=== PATIENT | female | born 1955 | race Hispanic/Latino ===

== ENCOUNTER → 2019-01-10 | Day surgery (SDC) | payer MEDICARE ==
[~2019-01-10] MED LIST: AMANTADINE100 MG PO; ASPIR 8181 MG PO; EFFEXOR XR 3737.5 MG PO; FENTANYL CITRATE/PF 100MCG/2 ML INJ ONE; GABAPENTIN300 MG PO; GLIMEPIRIDE2 MG PO; GLIPIZIDE5 MG PO; HYOSCYAMINE 0.125 MG TAB ONE; LASIX20 MG PO; LIPITOR10 MG PO; LOSARTAN POTAS100 MG PO; METFORMIN HCL500 M2 PO; MIDAZOLAM HCL 2 MG/2 ML VIAL ONE; NAPROXEN250 MG PO; OXYBUTYNIN CHLOR5 MG PO; PROPOFOL IV EMULSION 10 MG/ML 50 ML VIAL ONE; SERTRALINE HCL50 MG PO; SOLIQUA SQ; TRAZODONE HCL50 MG PO; TYLENOL WITH C1 EACH PO; VIT D2 PO; VITAMIN D32000 UNIT PEG
--- OUTSIDE RECORDS SUMMARY | 2019-01-10 09:49 | XMS REPORT ---
[facility] Phone Unavailable Care Team Providers Care Circular Shear Operator Name Role Phone ANTIONETTE LE PP Unavailable Adrianna BENTLEY Unavailable Unavailable [facility] OCCUPATIONAL Unavailable Unavailable SAMIR WARNER M.D. Unavailable Unavailable Problems This patient has no known problems. Allergies, Adverse Reactions, Alerts This patient has no known allergies or adverse reactions. Medications This patient has no known medications. Encounters Start Date/Time End Date/Time Encounter Type Admission Type Attending [facility] Care Department Encounter ID 2017-07-15 13:31:00 2017-07-15 13:31:00 Outpatient C [facility] [id number] Results Test Description Test Time Test Comments Text Results Atomic Results Result Comments XR Calcaneous Right 2018-03-02 10:11:23 Patient: JV RICE Date/Time03/02/2018 09:50 CDTReason for ExamE11.621ReportLocation R 16Exam: Right Calcaneus, 3 ViewsHistory: E11.621Comparison: Right foot radiograph dated 10/01/2017Findings:The calcaneus appears intact and well aligned. 10 mm enthesophyte is noted at the Achilles attachment at the calcaneus. Mild spurring involves the inferior calcaneus as well.No erosive changes or periosteal reaction. Subtalar joint appears normal without erosive changes or sclerosis.Vascular calcification is noted in the foot.Impression:1. Mild sp urring/enthesopathy involving the calcaneus.2. Peripheral vascular disease. Final Dictated by: MD He Eniola FDictated DT/TM: 03/02/2018 10:06 amSigned by: MD He Eniola FSigned (Electronic Signature): 03/02/2018 10:11 am AFB Culture and Smear 2017-11-27 11:45:00 Specimen/Source: Wound/Right ToeCollected: 10/06/2017 00:00 Status: Final Last Updated: 11/27/2017 11:45 BNP-Fopki-Kxcacqgdpeeu (Final) (Final) 10/13/17 No acid fast bacill seen on dir ect smear Culture Result (Final) (Final) 11/27/17 No growth of AFB at six (6) weeks Fungus Culture with Stain 2017-11-23 10:48:00 Specimen/Source: Wound/Right ToeCollected: 10/06/2017 00:00 Status: Final Last Updated: 11/23/2017 10:48 Fungal Smear Result (Final) (Final) 10/06/17 No yeast or hyphae seen Culture Result (Final) (Final) \S\11/23/17 No fungus isolated at 6 weeks Result before changed by SCHUMAEL on 11/23/2017 10:48: Culture Result (Final) (Final) \S\11/23/17 XR Chest 2 Views 2017-11-11 16:46:13 Patient: JV RICE Date/Time11/11/2017 16:35 CDTReason for Examhbo clearanceReportEXAM: Chest x-ray, 2 viewsLOCATION: [id number]: CTA of the aorta 07/15/2017INDICATION: hbo clearanceDISCUSSION:AP and lateral chest radiographs were submitted for interpretation.No consolidation, pleural effusion, or pneumothorax is seen.The cardiomediastinal silhouette is within normal limits.Mild aortic calcification is present.No acute osseous abnormalities are identified.IMPRESSION:No acute cardiopulmonary abnormalities. Final Dictated by: MD Mcmahon Alfred EDictated DT/TM: 11/11/2017 4:44 pmSigned by: MD Mcmahon Alfred ESignyolie (Electronic Signature): 11/11/2017 4:46 pm HIV Antibody 2017-10-21 11:58:00 HIV Screen 4th Generation wRf (test fary=[id number]) Non Reactive Non Reactive Culture, Wound [id number] 07:14:00Specimen/Source: Wound/Right ToeCollected: 10/06/2017 00:00 Status: Final Last Updated: 10/10/2017 07:14 Gram Stain (Final) (Final) 10/06/17 No organsims seen, No WBC's seen Culture Result (Final) (Final) 10/10/17 Anaerobic culture:No anaerobes isolated at 3 days Isolate (Final) (Final) 10/07/17 Rare Proteus vulgaris Amikacin <=16 Susceptible Ampicillin >16 Resistant Ampicillin/Sulb <=8/4 Susceptible Cefazolin >16 Resistant Cefepime <=4 Susceptible Cefotaxime 16 Intermediate Ceftazidime 4 Susceptible Ceftriaxone >32 Resistant Cefuroxime >16 Resistant Ciprofloxacin <=1 Susceptible Gentamicin <=4 Susceptible Imipenem 2 Intermediate Levofloxacin <=2 Susceptible Meropenem <=1 Susceptible Piperacillin/Tazo <=16 Susceptible Tobramycin <=4 Susceptible Trimethoprim/Sulfa <=2/38 Susceptible Isolate (Final) (Final) 10/07/17 Few Group D Enterococcus Isolate (Final) (Final) 10/07/17 Few Group D Enterococcus Second type Isolate Isolate Group D Enterococcus Group D Enterococcus --- KEON (mcg/ml) Ampicillin (AM) <=2 Susceptible <=2 Susceptible Gentamicin Syn (HLG) >500 Resistant <=500 Susceptible Linezolid (LNZ) 2 Susceptible 2 Susceptible Penicillin (P) 2 Susceptible 1 Susceptible Streptomycin Syn (HLS)<=1000 Susceptible <=1000 Susceptible Vancomycin (VA) 2 Susceptible 0.5 Susceptible Antibiotic Summary Grid: AM HLG LNZ P HLS VA Group D S R S S S S Enterococcus Group D S S S S S S Enterococcus POC Glucose, [id number] 16:11:00* Test Item Value Reference Range Comments POC Glucose (test code=POCGLUC) 237 mg/dL 70-115 If you consider your patient critically ill, the Festus Accu-Chek InformII metershould not be used for Glucose determinations.Draw a venous Glucose and send to the Main Lab for Analysis. POC Glucose, [id number] 08:01:00* Test Item Value Reference Range Comments POC Glucose (test code=POCGLUC) 163 mg/dL 70-115 If you consider your patient critically ill, the Festus Accu-Chek InformII metershould not be used for Glucose determinations.Draw a venous Glucose and send to the Main Lab for Analysis. Basic Metabolic [id number] 06:18:00* Test Item Value Reference Range Comments Sodium (test code=NA) 142 mmol/L 135-145 Potassium (test code=K) 4.3 mmol/L 3.5-5.1 Chloride (test code=CL) 103 mmol/L 98-105 Carbon Dioxide (test code=CO2) 25 mmol/L 22-29 Glucose (test code=GLU) 125 mg/dL 70-115 Blood Urea Nitrogen (test code=BUN) 13 mg/dL 8-23 Creatinine (test code=CREAT) 0.9 mg/dL 0.5-0.9 Calcium (test code=CA) 8.7 mg/dL 8.3-10.5 BUN/Creatinine Ratio (test code=BCRATIO) 14.4 Anion Gap (test code=AGAP) 14 mmol/L 7-16 Estimated GFR (test code=GFR) >60 mL/min/1.73m2 eGFR (estimated Glomerular Filtration Rate) is an estimated value,calculated from the patient's serum creatinine using the MDRD equation.It is NOT the patient's actual GFR. The eGFR provides a more clinicallyuseful measure of kidney disease than serum creatinine alone.This calculation takes sex and race into account, if the informationis provided. If the race is not provided, and the patient isAfrican-Hungarian, multiply by 1.212. If sex is not provided, and thepatient is female, multiply by 0.742. Results for patients <18 years ofage have not been validated by the MDRD study and should be interpretedwith caution.eGFR Result Interpretation:eGFR > or=60 is in the Normal RangeeGFR < 60 may mean kidney diseaseeGFR < 15 may mean kidney failureRanges recommended by the National Kidney Foundat ion,http://nkdep.nih.gov POC Glucose, [id number] 21:33:00* Test Item Value Reference Range Comments POC Glucose (test code=POCGLUC) 167 mg/dL 70-115 If you consider your patient critically ill, the Festus Accu-Chek InformII metershould not be used for Glucose determinations.Draw a venous Glucose and send to the Main Lab for Analysis. Vancomycin, [id number] 18:37:00* Test Item Value Reference Range Comments Ez Robles (test code=VANTR) 10.8 ug/mL 10.0-20.0 POC Glucose, [id number] 15:41:00* Test Item Value Reference Range Comments POC Glucose (test code=POCGLUC) 335 mg/dL 70-115 If you consider your patient critically ill, the Festus Accu-Chek InformII metershould not be used for Glucose determinations.Draw a venous Glucose and send to the Main Lab for Analysis. POC Glucose, [id number] 11:21:00* Test Item Value Reference Range Comments POC Glucose (test code=POCGLUC) 304 mg/dL 70-115 If you consider your patient critically ill, the Festus Accu-Chek InformII metershould not be used for Glucose determinations.Draw a venous Glucose and send to the Main Lab for Analysis. Culture, Blood [id number] 08:47:00Specimen: BloodCollected: 10/01/2017 23:20 Status: Final Last Updated: 10/07/2017 08:47 (1) ER Bed 3 Culture Result (Final) (Final) No Growth After 5 Days Culture, Blood Routine 2017-10-07 08:47:00Specimen: BloodCollected: 10/01/2017 23:05 Status: Final Last Updated: 10/07/2017 08:47 (1) ER Bed 3 Culture Result (Final) (Final) No Growth After 5 Days Sed Rate ESR ([place])2017-10-07 08:10:00* Test Item Value Reference Range Comments ESR (test code=HESR) 110 mm/Hr 0-20 POC Glucose, [id number] 07:47:00* Test Item Value Reference Range Comments POC Glucose (test code=POCGLUC) 160 mg/dL 70-115 If you consider your patient critically ill, the Festus Accu-Chek InformII metershould not be used for Glucose determinations.Draw a venous Glucose and send to the Main Lab for Analysis. Urinalysis [id number] 07:11:00* Test Item Value Reference Range Comments Color (test code=COLOR) Yellow Yellow,Straw,Pl yellow Clarity (test code=CLAR) Clear Clear Specific [place] (test code=SPGR) 1.013 1.001-1.035 pH (test code=PH) 7.0 5.0-9.0 Ketone (test code=KET) Negative mg/dL Negative Glucose (test code=GLUCUR) 100 mg/dL Negative Protein (test code=PROT) Negative mg/dL Negative Bilirubin (test code=BILI) Negative mg/dL Negative Occult Blood (test code=UDOB) Negative Negative Urobilinogen (test code=UROB) 0.2 mg/dL 0.2-1.0 Nitrite (test code=NIT) Negative Negative Leuk Esterase (test code=LEUK) Negative Negative Micros Exam (test code=MEXAM) Indicated Epithelial Cells (test code=EPI) 3-5 /LPF 0-30 WBC, Urine (test code=UWBC) None seen /HPF 0-5 RBC, Urine (test code=URBC) None Seen /HPF 0-5 Bacteria (test code=BACT) None /HPF CBC with [id number] 07:00:00* Test Item Value Reference Range Comments WBC (test code=WBC) 10.6 K/cumm 4.4-10.5 RBC (test code=RBC) 3.70 M/cumm 3.75-5.20 Hemoglobin (test code=HGB) 10.6 gm/dL 12.2-14.8 Hematocrit (test code=HCT) 33.4 % 36.5-44.4 MCV (test code=MCV) 90.3 fL 80-100 MCH (test code=MCH) 28.6 pg 27.0-32.5 MCHC (test code=MCHC) 31.7 g/dL 32.0-37.5 RDW (test code=RDW) 13.1 % 11.5-14.5 Platelet Count (test code=PLTCT) 447 K/cumm 140-440 MPV (test code=MPV) 10.0 fL Diff Method (test code=DIFFM) Auto Neutrophil (test code=NEUT) 59.6 % 36-70 Lymphocyte (test code=LYMPH) 28.2 % 12-44 Monocyte (test code=MONO) 6.7 % 0-11 Eosinophil (test code=EOS) 5.1 % 0-7 Basophil (test code=BASO) 0.4 % 0-2 Neutro Abs (test code=ANEUT) 6.3 K/cumm 1.6-7.4 Lymph Abs (test code=ALYMPH) 3.0 K/cumm 0.5-4.6 Early Abs (test code=AMONO) 0.7 K/cumm 0.0-1.2 Eos Abs (test code=AEOS) 0.54 K/cumm 0.00-0.74 Baso Abs (test code=ABASO) 0.0 K/cumm 0.00-0.21 Basic Metabolic [id number] 06:59:00* Test Item Value Reference Range Comments Sodium (test code=NA) 140 mmol/L 135-145 Potassium (test code=K) 4.3 mmol/L 3.5-5.1 Chloride (test code=CL) 101 mmol/L 98-105 Carbon Dioxide (test code=CO2) 28 mmol/L 22-29 Glucose (test code=GLU) 146 mg/dL 70-115 Blood Urea Nitrogen (test code=BUN) 11 mg/dL 8-23 Creatinine (test code=CREAT) 0.9 mg/dL 0.5-0.9 Calcium (test code=CA) 8.4 mg/dL 8.3-10.5 BUN/Creatinine Ratio (test code=BCRATIO) 12.2 Anion Gap (test code=AGAP) 11 mmol/L 7-16 Estimated GFR (test code=GFR) >60 mL/min/1.73m2 eGFR (estimated Glomerular Filtration Rate) is an estimated value,calculated from the patient's serum creatinine using the MDRD equation.It is NOT the patient's actual GFR. The eGFR provides a more clinicallyuseful measure of kidney disease than serum creatinine alone.This calculation takes sex and race into account, if the informationis provided. If the race is not provided, and the patient isAfrican-Hungarian, multiply by 1.212. If sex is not provided, and thepatient is female, multiply by 0.742. Results for patients <18 years ofage have not been validated by the MDRD study and should be interpretedwith caution.eGFR Result Interpretation:eGFR > or=60 is in the Normal RangeeGFR < 60 may mean kidney diseaseeGFR < 15 may mean kidney failureRanges recommended by the National Kidney Foundat ion,http://nkdep.nih.gov C-Reactive Protein, [id number] 06:59:00* Test Item Value Reference Range Comments CRP (test code=CRP) 61.7 mg/L 0.0-5.0 POC Glucose, [id number] 19:29:00* Test Item Value Reference Range Comments POC Glucose (test code=POCGLUC) 271 mg/dL 70-115 If you consider your patient critically ill, the Festus Accu-Chek InformII metershould not be used for Glucose determinations.Draw a venous Glucose and send to the Main Lab for Analysis. POC Glucose, [id number] 16:14:00* Test Item Value Reference Range Comments POC Glucose (test code=POCGLUC) 318 mg/dL 70-115 Notify RN or MDIf you consider your patient critically ill, the Festus Accu-Chek InformII metershould not be used for Glucose determinations.Draw a venous Glucose and send to the Main Lab for Analysis. POC Glucose, [id number] 09:07:00* Test Item Value Reference Range Comments POC Glucose (test code=POCGLUC) 217 mg/dL 70-115 If you consider your patient critically ill, the Festus Accu-Chek InformII metershould not be used for Glucose determinations.Draw a venous Glucose and send to the Main Lab for Analysis. Vancomycin, [id number] 05:58:00* Test Item Value Reference Range Comments Ez Robles (test code=VANTR) 6.9 ug/mL 10.0-20.0 POC Glucose, [id number] 19:02:00* Test Item Value Reference Range Comments POC Glucose (test code=POCGLUC) 128 mg/dL 70-115 If you consider your patient critically ill, the Festus Accu-Chek InformII metershould not be used for Glucose determinations.Draw a venous Glucose and send to the Main Lab for Analysis. POC Glucose, [id number] 11:28:00* Test Item Value Reference Range Comments POC Glucose (test code=POCGLUC) 188 mg/dL 70-115 If you consider your patient critically ill, the Festus Accu-Chek InformII metershould not be used for Glucose determinations.Draw a venous Glucose and send to the Main Lab for Analysis. POC Glucose, [id number] 07:05:00* Test Item Value Reference Range Comments POC Glucose (test code=POCGLUC) 155 mg/dL 70-115 If you consider your patient critically ill, the Festus Accu-Chek InformII metershould not be used for Glucose determinations.Draw a venous Glucose and send to the Main Lab for Analysis. POC Glucose, [id number] 21:07:00* Test Item Value Reference Range Comments POC Glucose (test code=POCGLUC) 243 mg/dL 70-115 Notify RN or MDIf you consider your patient critically ill, the Festus Accu-Chek InformII metershould not be used for Glucose determinations.Draw a venous Glucose and send to the Main Lab for Analysis. POC Glucose, [id number] 15:21:00* Test Item Value Reference Range Comments POC Glucose (test code=POCGLUC) 316 mg/dL 70-115 If you consider your patient critically ill, the Festus Accu-Chek InformII metershould not be used for Glucose determinations.Draw a venous Glucose and send to the Main Lab for Analysis. POC Glucose, [id number] 11:37:00* Test Item Value Reference Range Comments POC Glucose (test code=POCGLUC) 256 mg/dL 70-115 If you consider your patient critically ill, the Festus Accu-Chek InformII metershould not be used for Glucose determinations.Draw a venous Glucose and send to the Main Lab for Analysis. POC Glucose, [id number] 07:24:00* Test Item Value Reference Range Comments POC Glucose (test code=POCGLUC) 231 mg/dL 70-115 If you consider your patient critically ill, the Festus Accu-Chek InformII metershould not be used for Glucose determinations.Draw a venous Glucose and send to the Main Lab for Analysis. RPR, [id number] 03:25:00* Test Item Value Reference Range Comments RPR (test code=RPR) Non-Reactive Non-Reactive POC Glucose, [id number] 21:04:00* Test Item Value Reference Range Comments POC Glucose (test code=POCGLUC) 313 mg/dL 70-115 If you consider your patient critically ill, the Festus Accu-Chek InformII metershould not be used for Glucose determinations.Draw a venous Glucose and send to the Main Lab for Analysis. POC Glucose, [id number] 16:13:00* Test Item Value Reference Range Comments POC Glucose (test code=POCGLUC) 268 mg/dL 70-115 Notify RN or MDIf you consider your patient critically ill, the Festus Accu-Chek InformII metershould not be used for Glucose determinations.Draw a venous Glucose and send to the Main Lab for Analysis. HIV [id number] 14:43:00* Test Item Value Reference Range Comments HIV 1/2 Antibody (test code=HIV1/2AB) Non-Reactive Non-Reactive HIV1/2 Antibody screen result indicates the absence of HIV1 and YSV7flgqbdrey.However, A Non- Reactive screen result does not rule out exposure orinfection. If an acute infection is suspected, HIV RNA Quantitative is recommended. P24 Antigen (test code=P24) Non-Reactive Non-Reactive P24 Ag screen result indicates the absence of P24 antigen, which is anindicator of HIV-1 acute infection.However, A Non-Reactive screen does not rule out exposure or infection.If acute HIV-1 is suspected, HIV RNA Quantitative is recommended. Comprehensive Metabolic [id number] 13:43:00* Test Item Value Reference Range Comments Sodium (test code=NA) 136 mmol/L 135-145 Potassium (test code=K) 4.3 mmol/L 3.5-5.1 Chloride (test code=CL) 95 mmol/L 98-105 Carbon Dioxide (test code=CO2) 26 mmol/L 22-29 Glucose (test code=GLU) 253 mg/dL 70-115 Blood Urea Nitrogen (test code=BUN) 17 mg/dL 8-23 Creatinine (test code=CREAT) 0.8 mg/dL 0.5-0.9 Calcium (test code=CA) 8.9 mg/dL 8.3-10.5 Prot Total (test code=TP) 6.8 g/dL 6.4-8.3 Albumin (test code=ALB) 3.6 g/dL 3.5-5.2 A/G Ratio (test code=AGRATIO) 1.1 Ratio Globulin (test code=GLOB) 3.2 2.9-3.1 Bili Total (test code=TBIL) 0.2 mg/dL 0.1-0.9 Alk Phos (test code=APHOS) 106 U/L 35-104 AST (test code=AST) 15 U/L 1-32 ALT (test code=ALT) 16 U/L 1-33 BUN/Creatinine Ratio (test code=BCRATIO) 21.3 Anion Gap (test code=AGAP) 15 mmol/L 7-16 Estimated GFR (test code=GFR) >60 mL/min/1.73m2 eGFR (estimated Glomerular Filtration Rate) is an estimated value,calculated from the patient's serum creatinine using the MDRD equation.It is NOT the patient's actual GFR. The eGFR provides a more clinicallyuseful measure of kidney disease than serum creatinine alone.This calculation takes sex and race into account, if the informationis provided. If the race is not provided, and the patient isAfrican-Hungarian, multiply by 1.212. If sex is not provided, and thepatient is female, multiply by 0.742. Results for patients <18 years ofage have not been validated by the MDRD study and should be interpretedwith caution.eGFR Result Interpretation:eGFR > or=60 is in the Normal RangeeGFR < 60 may mean kidney diseaseeGFR < 15 may mean kidney failureRanges recommended by the National Kidney Foundat ion,http://nkdep.nih.gov CBC with [id number] 13:33:00* Test Item Value Reference Range Comments WBC (test code=WBC) 10.7 K/cumm 4.4-10.5 RBC (test code=RBC) 4.23 M/cumm 3.75-5.20 Hemoglobin (test code=HGB) 12.2 gm/dL 12.2-14.8 Hematocrit (test code=HCT) 37.5 % 36.5-44.4 MCV (test code=MCV) 88.6 fL 80-100 MCH (test code=MCH) 28.8 pg 27.0-32.5 MCHC (test code=MCHC) 32.5 g/dL 32.0-37.5 RDW (test code=RDW) 13.1 % 11.5-14.5 Platelet Count (test code=PLTCT) 487 K/cumm 140-440 MPV (test code=MPV) 10.2 fL Diff Method (test code=DIFFM) Auto Neutrophil (test code=NEUT) 63.5 % 36-70 Lymphocyte (test code=LYMPH) 28.4 % 12-44 Monocyte (test code=MONO) 4.7 % 0-11 Eosinophil (test code=EOS) 2.6 % 0-7 Basophil (test code=BASO) 0.8 % 0-2 Neutro Abs (test code=ANEUT) 6.8 K/cumm 1.6-7.4 Lymph Abs (test code=ALYMPH) 3.0 K/cumm 0.5-4.6 Early Abs (test code=AMONO) 0.5 K/cumm 0.0-1.2 Eos Abs (test code=AEOS) 0.28 K/cumm 0.00-0.74 Baso Abs (test code=ABASO) 0.1 K/cumm 0.00-0.21 Hep B Surface [id number] 13:32:00* Test Item Value Reference Range Comments Hep Bs Ab (test code=HBSAB) Nonreactive Non-Reactive Hep B Surface [id number] 13:32:00* Test Item Value Reference Range Comments Hep Bs Ag (test code=HBSAG) Nonreactive Non-Reactive Hep C [id number] 13:32:00* Test Item Value Reference Range Comments Hep C Ab (test code=HCAB) Nonreactive Non-Reactive A Reactive result may indicate a past or present HCV infection orpossibly a carrier state. It is not diagnostic of Hepatitis C.However, a patient with a repeatedly Reactive result should beconsidered infectious. Reactive for HCV antibody by EIA screeningshould be confirmed by a supplemental test. Hep B Core [id number] 13:32:00* Test Item Value Reference Range Comments HBC Total (test code=HBCAB) Nonreactive Non-Reactive BHCG, Serum, [id number] 13:13:00* Test Item Value Reference Range Comments Preg Qual [Se] (test code=BSHCG) Negative Negative POC Glucose, [id number] 11:47:00* Test Item Value Reference Range Comments POC Glucose (test code=POCGLUC) 293 mg/dL 70-115 Notify RN or MDIf you consider your patient critically ill, the Festus Accu-Chek InformII metershould not be used for Glucose determinations.Draw a venous Glucose and send to the Main Lab for Analysis. POC Glucose, [id number] 07:28:00* Test Item Value Reference Range Comments POC Glucose (test code=POCGLUC) 203 mg/dL 70-115 Notify RN or MDIf you consider your patient critically ill, the Festus Accu-Chek InformII metershould not be used for Glucose determinations.Draw a venous Glucose and send to the Main Lab for Analysis. Basic Metabolic [id number] 05:54:00* Test Item Value Reference Range Comments Sodium (test code=NA) 135 mmol/L 135-145 Potassium (test code=K) 4.2 mmol/L 3.5-5.1 Chloride (test code=CL) 95 mmol/L 98-105 Carbon Dioxide (test code=CO2) 28 mmol/L 22-29 Glucose (test code=GLU) 210 mg/dL 70-115 Blood Urea Nitrogen (test code=BUN) 18 mg/dL 8-23 Creatinine (test code=CREAT) 0.8 mg/dL 0.5-0.9 Calcium (test code=CA) 8.9 mg/dL 8.3-10.5 BUN/Creatinine Ratio (test code=BCRATIO) 22.5 Anion Gap (test code=AGAP) 12 mmol/L 7-16 Estimated GFR (test code=GFR) >60 mL/min/1.73m2 eGFR (estimated Glomerular Filtration Rate) is an estimated value,calculated from the patient's serum creatinine using the MDRD equation.It is NOT the patient's actual GFR. The eGFR provides a more clinicallyuseful measure of kidney disease than serum creatinine alone.This calculation takes sex and race into account, if the informationis provided. If the race is not provided, and the patient isAfrican-Hungarian, multiply by 1.212. If sex is not provided, and thepatient is female, multiply by 0.742. Results for patients <18 years ofage have not been validated by the MDRD study and should be interpretedwith caution.eGFR Result Interpretation:eGFR > or=60 is in the Normal RangeeGFR < 60 may mean kidney diseaseeGFR < 15 may mean kidney failureRanges recommended by the National Kidney Foundat ion,http://nkdep.nih.gov CBC with [id number] 05:33:00* Test Item Value Reference Range Comments WBC (test code=WBC) 11.4 K/cumm 4.4-10.5 RBC (test code=RBC) 3.99 M/cumm 3.75-5.20 Hemoglobin (test code=HGB) 11.7 gm/dL 12.2-14.8 Hematocrit (test code=HCT) 36.0 % 36.5-44.4 MCV (test code=MCV) 90.3 fL 80-100 MCH (test code=MCH) 29.5 pg 27.0-32.5 MCHC (test code=MCHC) 32.6 g/dL 32.0-37.5 RDW (test code=RDW) 13.2 % 11.5-14.5 Platelet Count (test code=PLTCT) 471 K/cumm 140-440 MPV (test code=MPV) 10.1 fL Diff Method (test code=DIFFM) Auto Neutrophil (test code=NEUT) 61.1 % 36-70 Lymphocyte (test code=LYMPH) 29.8 % 12-44 Monocyte (test code=MONO) 5.2 % 0-11 Eosinophil (test code=EOS) 3.0 % 0-7 Basophil (test code=BASO) 0.8 % 0-2 Neutro Abs (test code=ANEUT) 6.9 K/cumm 1.6-7.4 Lymph Abs (test code=ALYMPH) 3.4 K/cumm 0.5-4.6 Early Abs (test code=AMONO) 0.6 K/cumm 0.0-1.2 Eos Abs (test code=AEOS) 0.34 K/cumm 0.00-0.74 Baso Abs (test code=ABASO) 0.1 K/cumm 0.00-0.21 POC Glucose, [id number] 21:28:00* Test Item Value Reference Range Comments POC Glucose (test code=POCGLUC) 241 mg/dL 70-115 If you consider your patient critically ill, the Festus Accu-Chek InformII metershould not be used for Glucose determinations.Draw a venous Glucose and send to the Main Lab for Analysis. POC Glucose, [id number] 17:02:00* Test Item Value Reference Range Comments POC Glucose (test code=POCGLUC) 296 mg/dL 70-115 Notify RN or MDIf you consider your patient critically ill, the Festus Accu-Chek InformII metershould not be used for Glucose determinations.Draw a venous Glucose and send to the Main Lab for Analysis. US DUPLX LWR EXT ART/BPG, [id number] 08:37:15US DUPLX LWR EXT ART/BPG, BILATCLINICAL HISTORY: PainTechnique: Grayscale, color, and spectral sonography of the bilateral lower extremity arteries was performed.FINDINGS:Right leg (waveform / peak systolic velocity)COLLEGE SPECIALIST: Biphasic 116 cm/secProx SFA: Biphasic 64 cm/secMid SFA: Biphasic 90 cm/secDistal SFA: Biphasic 118 cm/secPopliteal: Biphasic 69 cm/secPTA: Monophasic 49 cm/secATA: Biphasic 34 cm/secDPA: Monophasic 60 cm/secLeft leg (waveform / peak systolic velocity)COLLEGE SPECIALIST: Biphasic 95 cm/secProx SFA: Biphasic 78 cm/secMid SFA: Bi phasic 91 cm/secDistal SFA: Biphasic 118 cm/secPopliteal: Biphasic 63 cm/secPTA: Monophasic 44 cm/sec proximal, 19 cm/s distalATA: Monophasic 27 cm/secDPA: Monophasic 44 cm/secIMPRESSIO N: 1. Mild femoropopliteal segment disease without evidence of aflow-limiting s tenosis.2. The popliteal arteries are monophasic compatible with moderate toadv anced disease.Location: [address], [id number] 07:54:00* Test Item Value Reference Range Comments POC Glucose (test code=POCGLUC) 123 mg/dL 70-115 If you consider your patient critically ill, the [facility] Accu-Chek InformII metershould not be used for Glucose determinations.Draw a venous Glucose and send to the Main Lab for Analysis. Comprehensive Metabolic [id number] 00:01:00* Test Item Value Reference Range Comments Sodium (test code=NA) 136 mmol/L 135-145 Potassium (test code=K) 4.8 mmol/L 3.5-5.1 Hemolyzed Chloride (test code=CL) 94 mmol/L 98-105 Carbon Dioxide (test code=CO2) 26 mmol/L 22-29 Glucose (test code=GLU) 277 mg/dL 70-115 Blood Urea Nitrogen (test code=BUN) 26 mg/dL 8-23 Creatinine (test code=CREAT) 1.2 mg/dL 0.5-0.9 Calcium (test code=CA) 10.0 mg/dL 8.3-10.5 Prot Total (test code=TP) 8.5 g/dL 6.4-8.3 Albumin (test code=ALB) 4.4 g/dL 3.5-5.2 A/G Ratio (test code=AGRATIO) 1.1 Ratio Globulin (test code=GLOB) 4.1 2.9-3.1 Bili Total (test code=TBIL) 0.2 mg/dL 0.1-0.9 Alk Phos (test code=APHOS) 140 U/L 35-104 AST (test code=AST) 35 U/L 1-32 Hemolyzed ALT (test code=ALT) 19 U/L 1-33 BUN/Creatinine Ratio (test code=BCRATIO) 21.7 Anion Gap (test code=AGAP) 16 mmol/L 7-16 Estimated GFR (test code=GFR) 49 mL/min/1.73m2 eGFR (estimated Glomerular Filtration Rate) is an estimated value,calculated from the patient's serum creatinine using the MDRD equation.It is NOT the patient's actual GFR. The eGFR provides a more clinicallyuseful measure of kidney disease than serum creatinine alone.This calculation takes sex and race into account, if the informationis provided. If the race is not provided, and the patient isAfrican-Hungarian, multiply by 1.212. If sex is not provided, and thepatient is female, multiply by 0.742. Results for patients <18 years ofage have not been validated by the MDRD study and should be interpretedwith caution.eGFR Result Interpretation:eGFR > or=60 is in the Normal RangeeGFR < 60 may mean kidney diseaseeGFR < 15 may mean kidney failureRanges recommended by the National Kidney Foundat ion,http://nkdep.nih.gov CBC with [id number] 23:41:00* Test Item Value Reference Range Comments WBC (test code=WBC) 14.6 K/cumm 4.4-10.5 RBC (test code=RBC) 4.51 M/cumm 3.75-5.20 Hemoglobin (test code=HGB) 13.4 gm/dL 12.2-14.8 Hematocrit (test code=HCT) 41.4 % 36.5-44.4 MCV (test code=MCV) 91.7 fL 80-100 MCH (test code=MCH) 29.8 pg 27.0-32.5 MCHC (test code=MCHC) 32.5 g/dL 32.0-37.5 RDW (test code=RDW) 13.1 % 11.5-14.5 Platelet Count (test code=PLTCT) 499 K/cumm 140-440 MPV (test code=MPV) 10.8 fL Diff Method (test code=DIFFM) Auto Neutrophil (test code=NEUT) 71.7 % 36-70 Lymphocyte (test code=LYMPH) 21.7 % 12-44 Monocyte (test code=MONO) 4.4 % 0-11 Eosinophil (test code=EOS) 1.6 % 0-7 Basophil (test code=BASO) 0.6 % 0-2 Neutro Abs (test code=ANEUT) 10.5 K/cumm 1.6-7.4 Lymph Abs (test code=ALYMPH) 3.2 K/cumm 0.5-4.6 Early Abs (test code=AMONO) 0.6 K/cumm 0.0-1.2 Eos Abs (test code=AEOS) 0.24 K/cumm 0.00-0.74 Baso Abs (test code=ABASO) 0.1 K/cumm 0.00-0.21 XR FOOT 3+V, [id number] 23:14:50Examination: Right foot seriesLocation code: A62Mhrdqkwutw: NoneDiscussion:Clinical history is remarkable for pain. 3 views of the right foot wereobtained. Mineralization is appropriate. There is subcutaneous airidentified at the level of the fourth toe, findings may representcellulitis. There is no focal erosive change. Radiopaque foreign body isidentified along the mid fifth metatarsal.Impression:1. Subcutaneous air is present at the level of the fourth toe, noerosive change.2. Metallic linear foreign body is present along the distal fifthmetatarsal.POC Glucose, [id number] 22:43:00* Test Item Value Reference Range Comments POC Glucose (test code=POCGLUC) 292 mg/dL 70-115 Notify RN or MDIf you consider your patient critically ill, the [facility] Accu-Chek InformII metershould not be used for Glucose determinations.Draw a venous Glucose and send to the Main Lab for Analysis. CTA AORTO-ILIOFEMORAL RUNOFF [id number] 17:06:54CTA ABDOMINAL AORTA WITH LOWER EXTREMITY RUNOFF- WITH CONTRAST.CLINICAL HISTORY: I73.9: PERIPHERAL VASCULAR DISEASE, UNSPECIFIEDTECHNIQUE: Helical CT of the abdomen, pelvis, and lower extremities wasperformed following the administration of a 150 mL Isovue 300intravenous contrast. One or more of the following dose reductiontechniques were used: Automated exposure control, adjustment of the mAand/or kV according to patient size, and/or utilization of iterativereconstruction technique. Thin section axial, coronal, and sagittalimages were obtained. 3-D/MIP reconstructions were created. FINDINGS:ANGIOGRAPHIC FINDINGS:No aortic aneurysm or dissection is seen. Mild nonflow limitingcalcific plaque is seen in the ab dominal aorta. The common iliac andexternal iliac arteries are patent. Moderat e disease is seen in theproximal internal iliac arteries.The celiac trunk, SMA, both renal arteries, and HILARIO are patent.RIGHT LEG: The common femoral and profun da femoris arteries are patent. There ismild atherosclerotic disease in the pro ximal and mid SFA. A focal 50%stenosis is seen in the adductor canal. The popl iteal artery showsmoderate disease. The anterior tibial artery is patent. Ther e is afocal high-grade stenosis in the mid peroneal artery. The peronealartery continues distally and eventually supplies the plantar artery ofthe foot. The p osterior tibial artery is diminutive in size and likelyoccluded at the level of the ankle.LEFT LEG:The common femoral and profunda femoral arteries are patent. Moderatemultifocal narrowings are seen in the superficial femoral arterymeasuri ng up to 50%. The popliteal artery is patent with moderatedisease. The posteri or tibial artery is occluded proximally. Theperoneal artery gives supply to the plantar arteries of the foot. Theanterior tibial artery and dorsalis pedis art eries are patent.NONVASCULAR FINDINGS:Abdomen and pelvis: The visualized lung ba ses are clear. No pleural effusion is seen. Theheart size is normal.The liver, gallbladder, spleen, pancreas, and adrenal glands areunremarkable. The kidneys appear normal. No hydronephrosis is present. The bowel loops are nondilated. The appendix is normal. No free airfree fluid is present.The urinary bladder is unremarkable. No adnexal mass is seen. Noaggressive osseous lesion is identif ied.IMPRESSION: 1. Mild aortoiliac inflow disease.2. Focal 50% stenosis in the right distal SFA. Multifocal moderatestenoses in the left SFA.3. Bilateral po sterior tibial arteries occlusions. Two-vessel runoffis maintained bilaterally. Location: [facility] Glucose, [id number] 16:09:00* Test Item Value Reference Range Comments POC Glucose (test code=POCGLUC) 124 mg/dL 70-115 If you consider your patient critically ill, the [employer] Accu-Chek InformII metershould not be used for Glucose determinations.Draw a venous Glucose and send to the Main Lab for Analysis. POC Glucose, [id number] 10:50:00* Test Item Value Reference Range Comments POC Glucose (test code=POCGLUC) 173 mg/dL 70-115 If you consider your patient critically ill, the [employer] Accu-Chek InformII metershould not be used for Glucose determinations.Draw a venous Glucose and send to the Main Lab for Analysis. POC Glucose, [id number] 07:17:00* Test Item Value Reference Range Comments POC Glucose (test code=POCGLUC) 244 mg/dL 70-115 If you consider your patient critically ill, the [employer] Accu-Chek InformII metershould not be used for Glucose determinations.Draw a venous Glucose and send to the Main Lab for Analysis. Basic Metabolic [id number] 20:13:00* Test Item Value Reference Range Comments Sodium (test code=NA) 137 mmol/L 135-145 Potassium (test code=K) 4.3 mmol/L 3.5-5.1 Chloride (test code=CL) 97 mmol/L 98-105 Carbon Dioxide (test code=CO2) 27 mmol/L 22-29 Glucose (test code=GLU) 128 mg/dL 70-115 Blood Urea Nitrogen (test code=BUN) 18 mg/dL 8-23 Creatinine (test code=CREAT) 0.7 mg/dL 0.5-0.9 Calcium (test code=CA) 9.5 mg/dL 8.3-10.5 BUN/Creatinine Ratio (test code=BCRATIO) 25.7 Anion Gap (test code=AGAP) 13 mmol/L 7-16 Estimated GFR (test code=GFR) >60 mL/min/1.73m2 eGFR (estimated Glomerular Filtration Rate) is an estimated value,calculated from the patient's serum creatinine using the MDRD equation.It is NOT the patient's actual GFR. The eGFR provides a more clinicallyuseful measure of kidney disease than serum creatinine alone.This calculation takes sex and race into account, if the informationis provided. If the race is not provided, and the patient isAfrican-Hungarian, multiply by 1.212. If sex is not provided, and thepatient is female, multiply by 0.742. Results for patients <18 years ofage have not been validated by the MDRD study and should be interpretedwith caution.eGFR Result Interpretation:eGFR > or=60 is in the Normal RangeeGFR < 60 may mean kidney diseaseeGFR < 15 may mean kidney failureRanges recommended by the National Kidney Foundat ion,http://nkdep.nih.gov CBC with [id number] 19:34:00* Test Item Value Reference Range Comments WBC (test code=WBC) 10.5 K/cumm 4.4-10.5 RBC (test code=RBC) 4.33 M/cumm 3.75-5.20 Hemoglobin (test code=HGB) 13.8 gm/dL 12.2-14.8 Hematocrit (test code=HCT) 38.4 % 36.5-44.4 MCV (test code=MCV) 88.5 fL 80-100 MCH (test code=MCH) 31.9 pg 27.0-32.5 MCHC (test code=MCHC) 36.0 g/dL 32.0-37.5 RDW (test code=RDW) 13.7 % 11.5-14.5 Platelet Count (test code=PLTCT) 302 K/cumm 140-440 MPV (test code=MPV) 11.1 fL Diff Method (test code=DIFFM) Auto Neutrophil (test code=NEUT) 55.3 % 36-70 Lymphocyte (test code=LYMPH) 36.0 % 12-44 Monocyte (test code=MONO) 5.7 % 0-11 Eosinophil (test code=EOS) 2.4 % 0-7 Basophil (test code=BASO) 0.6 % 0-2 Neutro Abs (test code=ANEUT) 5.8 K/cumm 1.6-7.4 Lymph Abs (test code=ALYMPH) 3.8 K/cumm 0.5-4.6 Early Abs (test code=AMONO) 0.6 K/cumm 0.0-1.2 Eos Abs (test code=AEOS) 0.26 K/cumm 0.00-0.74 Baso Abs (test code=ABASO) 0.1 K/cumm 0.00-0.21
--- OUTSIDE RECORDS SUMMARY | 2019-01-10 09:49 | XMS REPORT | Continuity of Care Document ---
Author Author [employer] Organization [employer] Address Unknown Phone Unavailable Care Team Providers Care C Web Developer Name Role Phone [employer] Information [employer] Unavailable Unavailable Problems Problem Status Onset Date Classification Date Reported Comments Source VOMITING Active 03/14/2017 [facility] NAUSEA VOMITING, COFFEE GROUND EMESIS Active 03/14/2017 [facility] Diabetes Resolved Problem 03/19/2017 [facility] Hypertension Resolved Problem 03/19/2017 [facility] Parkinsons Resolved Problem 03/19/2017 [facility] NAUSEA WITH VOMITING, UNSPECIFIED Active [facility] HEMATEMESIS Active [facility] Medications Medication Details Route Status Patient Instructions Ordering Provider Order Date Source omeprazole 20 mg oral delayed release capsule 20 mg=1 cap, PO, Daily, # 30 cap, 1 Refill(s) Active 03/16/2017 [facility] sucralfate 1 g oral tablet 1 gm=1 tab, PO, QID, # 56 tab, 0 Refill(s) Active 03/16/2017 [facility] Ondansetron 4 MG Disintegrating Tablet [Zofran] 4 mg=1 tab, PO, BID, PRN Nausea and Vomiting, Dissolve tab under tongue, # 10 tab, 0 Refill(s) Active 03/16/2017 [facility] Protonix 40 mg, 1 tab, Route: PO, Drug form: ECTAB, Daily, Dosing Weight 71.091, kg, Start date: 03/16/17 9:00:00 CDT, Duration: 30 day, Stop date: 04/14/17 9:00:00 CDTNotes: Tablet should not be chewed or crushed. (Same as: Protonix) Inactive 03/16/2017 [facility] venlafaxine 75 mg, 2 tab, Route: PO, Drug form: TAB, Daily, Dosing Weight 71.091, kg, Start date: 03/16/17 9:00:00 CDT, Duration: 30 day, Stop date: 04/14/17 9:00:00 CDTNotes: (Same As: Effexor) Inactive 03/16/2017 [facility] Losartan 100 mg, 2 tab, Route: PO, Drug form: TAB, Daily, Dosing Weight 71.091, kg, Start date: 03/16/17 9:00:00 CDT, Duration: 30 day, Stop date: 04/14/17 9:00:00 CDTNotes: (Same as: Dane) Inactive 03/16/2017 [facility] sodium chloride 0.9% 1000 ml INJ 1,000 mL 1,000 mL, Rate: 75 ml/hr, Infuse over: 13.3 hr, Route: IV, Dosing Weight 71.091 kg, Total Volume: 1,000, Start date: 03/15/17 14:38:00 CDT, Duration: 30 day, Stop date: 04/14/17 14:37:00 CDT No Longer Active 03/15/2017 [facility] Zofran 4 mg, Route: IVP, Drug form: INJ, Q8H, Dosing Weight 71.091, kg, PRN Nausea, Start date: 03/15/17 14:37:00 CDT, Duration: 30 day, Stop date: 04/14/17 14:36:00 CDT Inactive 03/15/2017 [facility] Zofran 4 mg, 2 mL, Route: IVP, Drug form: INJ, Q8H, Dosing Weight 71.091, kg, PRN Nausea, Start date: 03/15/17 12:40:00 CDT, Duration: 30 day, Stop date: 04/14/17 12:39:00 CDTNotes: (Same as: Zofran) MEDICATION WASTE Product Size: 4 mg Product Wasted: ___ mg No Longer Active 03/15/2017 [facility] Albuterol 0.833 MG/ML / Ipratropium [place] 0.167 MG/ML Inhalant Solution 3 mL, Route: NEB, Drug Form: SOLN, Dosing Weight 71.091, kg, ONCE, STAT, Start date: 03/15/17 11:50:00 CDT, Stop date: 03/15/17 11:50:00 CDTNotes: (Same as: Anca) Inactive 03/15/2017 [facility] sodium chloride 0.9% 500 ml INJ 500 mL 500 mL, Rate: 25 ml/hr, Infuse over: 20 hr, Route: IV, Dosing Weight 71.091 kg, Total Volume: 500, Start date: 03/15/17 11:50:00 CDT, Duration: 30 day, Stop date: 04/14/17 11:49:00 CDT Inactive 03/15/2017 [facility] Novolin R 5 unit, 0.05 mL, Route: SUB-Q, Drug form: INJ, TID-Before Meals, Dosing Weight 71.091, kg, Start date: 03/15/17 11:30:00 CDT, Duration: 30 day, Stop date: 04/14/17 7:30:00 CDTNotes: (Same as: Humulin R and NovoLIN R) WASTE: F/P - Black; E - Municipal Trash Bin (Do not shake) No Longer Active 03/15/2017 [facility] Insulin Lispro 3 unit, 0.03 mL, Route: SUB-Q, Drug form: SOLN, Sliding Scale, Dosing Weight 71.091, kg, PRN Blood Glucose Results, Start date: 03/15/17 11:17:00 CDT, Duration: 30 day, Stop date: 04/14/17 11:16:00 C DTNotes: Roll in palms of hands gently; Do not shake `vigorously. (Same as: Humalog ) "Single Patient Use Only " WASTE: F/P - Black; E - Municipal Trash Bin Stable for 28 days at room temperature. Expires in days from Date No Longer Active 03/15/2017 [facility] Dextrose 50% Syringe 25 gm, 50 mL, Route: IVP, Drug Form: INJ, Dosing Weight 71.091, kg, PRN, PRN Blood Glucose Results, Start date: 03/15/17 11:17:00 CDT, Duration: 30 day, Stop date: 04/14/17 11:16:00 CDT No Longer Active 03/15/2017 [facility] Glucagon 1 mg, Route: IM, Drug form: PDR/INJ, PRN, Dosing Weight 71.091, kg, PRN Blood Glucose Results, Start date: 03/15/17 11:17:00 CDT, Duration: 30 day, Stop date: 04/14/17 11:16:00 CDT No Longer Active 03/15/2017 [facility] pneumococcal capsular polysaccharide type 1 vaccine / pneumococcal capsular polysaccharide type 10A vaccine / pneumococcal capsular polysaccharide type 11A vaccine / pneumococcal capsular polysaccharide type 12F vaccine / pneumococcal capsular polysacchar 0.5 mL, Route: IM, Drug Form: INJ, Daily, Start date: 03/15/17 9:00:00 CDT, Duration: 1 doses or times, Stop date: 03/15/17 9:00:00 CDTNotes: (Same as: Pneumovax 23) Refrigerate Inactive 03/15/2017 [facility] Ibuprofen 800 mg, PO, TID, PRN Pain Score 1-5, 0 Refill(s) No Longer Active 03/15/2017 [facility] amantadine 100 mg oral capsule 200 mg=2 cap, PO, BID, 0 Refill(s) Active 03/15/2017 [facility] Hydrochlorothiazide 12.5 MG / Losartan Potassium 100 MG Oral Tablet 1 tab, PO, Daily, # 30 tab, 0 Refill(s) No Longer Active 03/15/2017 [facility] Tresiba FlexTouch 60 unit, SUB-Q, Daily, 0 Refill(s) Active 03/15/2017 [facility] Novolin R 5 unit, SUB-Q, TID-Before Meals, 0 Refill(s) Active 03/15/2017 [facility] Furosemide 20 MG Oral Tablet 20 mg=1 tab, PO, Daily, # 30 tab, 0 Refill(s) Active 03/15/2017 [facility] venlafaxine 75 mg oral tablet 75 mg=1 tab, PO, Daily, 0 Refill(s) Active 03/15/2017 [facility] Aspirin 81 mg, PO, Daily, 0 Refill(s) Active 03/15/2017 [facility] losartan 100 mg oral tablet 100 mg=1 tab, PO, Daily, # 30 tab, 0 Refill(s) Active 03/15/2017 [facility] pantoprazole 80 mg + sodium chloride 0.9% INJ 100 mL 100 mL, Rate: 10 ml/hr, Infuse over: 10 hr, Route: IVPB, Dosing Weight 70.455 kg, Total Volume: 100, Infuse at 8 mg / hr for 72 hours for GI bleeding, Start date: 03/15/17 1:20:00 CDT, Duration: 72 hr, Stop date: 03/18/17 1:19:00 CDT Inactive 03/15/2017 [facility] Acetaminophen 325 MG / Hydrocodone Bitartrate 5 MG Oral Tablet 1 tab, Route: PO, Drug Form: TAB, Dosing Weight 70.455, kg, Q4H, PRN Pain Score 4-6, Start date: 03/15/17 1:18:00 CDT, Duration: 30 day, Stop date: 04/14/17 1:17:00 CDTNotes: (Same as: [place] 325/5) Do not exceed 4gm/day of acetaminophen. No Longer Active 03/15/2017 [facility] Acetaminophen 650 mg, 2 tab, Route: PO, Drug form: TAB, Q4H, Dosing Weight 70.455, kg, PRN Pain 1-3/Temp > 100.4 F, Start date: 03/15/17 1:18:00 CDT, Duration: 30 day, Stop date: 04/14/17 1:17:00 CDTNotes: Do not exceed 4 gm/day. (Same as: Tylenol) No Longer Active 03/15/2017 [facility] Morphine 2 mg, 1 mL, Route: IVP, Drug form: SOLN, Q4H, Dosing Weight 70.455, kg, PRN Pain Score 7-10, Start date: 03/15/17 1:18:00 CDT, Duration: 30 day, Stop date: 04/14/17 1:17:00 CDT No Longer Active 03/15/2017 [facility] Acetaminophen 650 mg, Route: PO, Drug form: TAB, ONCE, Dosing Weight 70.455, kg, Priority: STAT, Start date: 03/15/17 1:12:00 CDT, Stop date: 03/15/17 1:12:00 CDT Inactive 03/15/2017 [facility] Zofran 4 mg, 2 mL, Route: IVP, Drug form: INJ, ONCE, Dosing Weight 70.455, kg, Priority: STAT, Start date: 03/14/17 21:30:00 CDT, Stop date: 03/14/17 21:30:00 CDTNotes: (Same as: Zofran) MEDICATION WASTE Product Size: 4 mg Product Wasted: ___ mg Inactive 03/15/2017 [facility] pantoprazole 40 mg, Route: IVP, Drug form: INJ, ONCE, Dosing Weight 70.455, kg, Priority: STAT, Start date: 03/14/17 21:30:00 CDT, Stop date: 03/14/17 21:30:00 CDTNotes: For IV push reconstitute with 10 ml 0.9% sodi um chloride and push over 2 minutes. (Same as: Protonix) Inactive 03/15/2017 [facility] Sodium Chloride 0.9% (Bolus) IV 1,000 mL, 1000 ml/hr, Infuse Over: 1 hr, Route: IV, 1,000, Drug form: INJ, ONCE, Priority: STAT, Dosing Weight 70.455 kg, Start date: 03/14/17 21:26:00 CDT, Duration: 1 doses or times, Stop date: 03/14/17 21:26:00 CDT Inactive 03/15/2017 [facility] Ondansetron 4 mg, Route: IVP, Drug form: INJ, ONCE, Dosing Weight 70.455, kg, Priority: STAT, Start date: 03/14/17 21:26:00 CDT, Stop date: 03/14/17 21:26:00 CDT Inactive 03/15/2017 [facility] Saline Flush 0.9% 10 mL, Route: IVP, Drug Form: INJ, kg, PRN, PRN Line Flush, Start date: 03/14/17 19:46:00 CDT, Duration: 30 day, Stop date: 04/13/17 19:45:00 CDTNotes: (Same as: BD Posiflush) No Longer Active 03/15/2017 [facility] Allergies, Adverse Reactions, Alerts No Known Medication Allergies Immunizations Immunization Date Given Site Status Last Updated Comments Source pneumococcal 23-valent vaccine 03/15/2017 Left Deltoid completed [facility] Results Order Name Results Value Reference Range Date Interpretation Comments Source CHEM PANEL eGFR 96 03/15/2017 Result Comment: The eGFR is calculated using the CKD-EPI formula. In most young, healthy individuals the eGFR will be >90 mL/min/1.73m2. The eGFR declines with age. An eGFR of 60-89 may be normal in some populations, particularly the elderly, for whom the CKD-EPI formula has not been extensively validated. Use of the eGFR is not recommended in the following populations:

Individuals with unstable creatinine concentrations, including patients and those with serious co-morbid conditions.

Patients with extremes in muscle mass or diet.

The data above are obtained from the National Kidney Disease Education Program (NKDEP) which additionally recommends that when the eGFR is used in patients with extremes of body mass index for purposes of drug dosing, the eGFR should be multiplied by the estimated BMI. [facility] CHEM PANEL Glucose Lvl 118 70 - 99 03/15/2017 [facility] CHEM PANEL BUN 13 7 - 22 03/15/2017 [facility] CHEM PANEL Creatinine Lvl 0.66 0.50 - 1.40 03/15/2017 [facility] CHEM PANEL Sodium Lvl 142 135 - 145 03/15/2017 [facility] CHEM PANEL Potassium Lvl 3.7 3.5 - 5.1 03/15/2017 [facility] CHEM PANEL CO2 23 24 - 32 03/15/2017 [facility] CHEM PANEL AGAP 14.7 10.0 - 20.0 03/15/2017 [facility] CHEM PANEL Calcium Lvl 8.6 8.5 - 10.5 03/15/2017 [facility] CHEM PANEL Chloride Lvl 108 95 - 109 03/15/2017 [facility] HEMATOLOGY Segs-Bands # 2.9 1.5 - 8.1 03/15/2017 [facility] HEMATOLOGY Basophils 0.6 0.0 - 1.0 03/15/2017 [facility] HEMATOLOGY Eosinophils 2.1 0.0 - 4.0 03/15/2017 [facility] HEMATOLOGY Eosinophils # 0.2 0.0 - 0.5 03/15/2017 [facility] HEMATOLOGY Lymphocytes # 3.4 1.0 - 5.5 03/15/2017 [facility] HEMATOLOGY Monocytes # 0.7 0.0 - 0.8 03/15/2017 [facility] HEMATOLOGY Segs 40.8 45.0 - 75.0 03/15/2017 [facility] HEMATOLOGY Monocytes 9.5 2.0 - 12.0 03/15/2017 [facility] HEMATOLOGY Lymphocytes 47.0 20.0 - 40.0 03/15/2017 [facility] HEMATOLOGY MCHC 33.8 32.0 - 36.0 03/15/2017 [facility] HEMATOLOGY MCH 30.3 27.0 - 31.0 03/15/2017 [facility] HEMATOLOGY RDW 13.8 11.5 - 14.5 03/15/2017 [facility] HEMATOLOGY Platelet 266 133 - 450 03/15/2017 [facility] HEMATOLOGY MPV 8.7 7.4 - 10.4 03/15/2017 [facility] HEMATOLOGY Hct 40.2 36.0 - 48.0 03/15/2017 [facility] HEMATOLOGY MCV 89.8 80.0 - 98.0 03/15/2017 [facility] HEMATOLOGY Hgb 13.6 12.0 - 16.0 03/15/2017 [facility] HEMATOLOGY RBC 4.47 4.20 - 5.40 03/15/2017 [facility] HEMATOLOGY WBC 7.4 3.7 - 10.4 03/15/2017 [facility] URINE AND STOOL UA Color Ltyellow 03/15/2017 [facility] URINE AND STOOL UA Urobilinogen <=1.0 mg/dL 0.1 - 1.0 03/15/2017 [facility] URINE AND STOOL UA Bacteria Many /HPF None Seen /HPF 03/15/2017 [facility] URINE AND STOOL UA WBC 2 0 - 5 03/15/2017 [facility] URINE AND STOOL UA RBC 1 0 - 2 03/15/2017 [facility] URINE AND STOOL UA Leuk Est Negative (03/15/17 12:46 AM) Negative 03/15/2017 [facility] URINE AND STOOL UA Sq Epi Occasional /LPF Few /LPF 03/15/2017 [facility] URINE AND STOOL UA Nitrite Negative (03/15/17 12:46 AM) Negative 03/15/2017 [facility] URINE AND STOOL UA Bili Negative *NA* (03/15/17 12:46 AM) Negative 03/15/2017 [facility] URINE AND STOOL UA Blood Negative (03/15/17 12:46 AM) Negative 03/15/2017 [facility] URINE AND STOOL UA Glucose 50 mg/dL Negative mg/dL 03/15/2017 [facility] URINE AND STOOL UA Ketones Negative mg/dL Negative mg/dL 03/15/2017 [facility] URINE AND STOOL UA pH 6.0 5.0 - 8.0 03/15/2017 [facility] URINE AND STOOL UA Protein Negative mg/dL Negative mg/dL 03/15/2017 [facility] URINE AND STOOL UA Turbidity Clear (03/15/17 12:46 AM) Clear 03/15/2017 [facility] URINE AND STOOL UA Spec Grav 1.006 <=1.030 03/15/2017 [facility] CARDIAC ENZYMES Troponin-I <0.02 0.00 - 0.40 03/15/2017 [facility] CHEM PANEL Lipase Lvl 81 73 - 393 03/15/2017 [facility] CHEM PANEL Albumin Lvl 3.3 3.5 - 5.0 03/15/2017 [facility] CHEM PANEL Total Protein 7.8 6.4 - 8.4 03/15/2017 [facility] CHEM PANEL Alk Phos 125 39 - 136 03/15/2017 [facility] CHEM PANEL AST 23 0 - 37 03/15/2017 [facility] CHEM PANEL Globulin 4.5 2.7 - 4.2 03/15/2017 [facility] CHEM PANEL A/G Ratio 0.7 0.7 - 1.6 03/15/2017 [facility] CHEM PANEL ALT 28 0 - 65 03/15/2017 [facility] CHEM PANEL Bili Indirect 0.3 0.0 - 1.0 03/15/2017 [facility] CHEM PANEL Bili Total 0.4 0.2 - 1.3 03/15/2017 [facility] CHEM PANEL Bili Direct 0.1 0.0 - 0.3 03/15/2017 [facility] ELECTROLYTES AGAP 14.0 10.0 - 20.0 03/15/2017 [facility] ELECTROLYTES eGFR 83 03/15/2017 Result Comment: The eGFR is calculated using the CKD-EPI formula. In most young, healthy individuals the eGFR will be >90 mL/min/1.73m2. The eGFR declines with age. An eGFR of 60-89 may be normal in some populations, particularly the elderly, for whom the CKD-EPI formula has not been extensively validated. Use of the eGFR is not recommended in the following populations:

Individuals with unstable creatinine concentrations, including patients and those with serious co-morbid conditions.

Patients with extremes in muscle mass or diet.

The data above are obtained from the National Kidney Disease Education Program (NKDEP) which additionally recommends that when the eGFR is used in patients with extremes of body mass index for purposes of drug dosing, the eGFR should be multiplied by the estimated BMI. [facility] ELECTROLYTES Chloride Lvl 102 95 - 109 03/15/2017 [facility] ELECTROLYTES CO2 26 24 - 32 03/15/2017 [facility] ELECTROLYTES Sodium Lvl 138 135 - 145 03/15/2017 [facility] ELECTROLYTES Potassium Lvl 4.0 3.5 - 5.1 03/15/2017 [facility] ELECTROLYTES Creatinine Lvl 0.78 0.50 - 1.40 03/15/2017 [facility] ELECTROLYTES Glucose Lvl 175 70 - 99 03/15/2017 [facility] ELECTROLYTES BUN 14 7 - 22 03/15/2017 [facility] ELECTROLYTES Calcium Lvl 9.4 8.5 - 10.5 03/15/2017 [facility] HEMATOLOGY RDW 14.0 11.5 - 14.5 03/15/2017 [facility] HEMATOLOGY Platelet 283 133 - 450 03/15/2017 [facility] HEMATOLOGY MPV 8.6 7.4 - 10.4 03/15/2017 [facility] HEMATOLOGY MCH 30.5 27.0 - 31.0 03/15/2017 [facility] HEMATOLOGY MCHC 33.5 32.0 - 36.0 03/15/2017 [facility] HEMATOLOGY WBC 7.3 3.7 - 10.4 03/15/2017 [facility] HEMATOLOGY Hct 43.9 36.0 - 48.0 03/15/2017 [facility] HEMATOLOGY MCV 91.1 80.0 - 98.0 03/15/2017 [facility] HEMATOLOGY RBC 4.82 4.20 - 5.40 03/15/2017 [facility] HEMATOLOGY Hgb 14.7 12.0 - 16.0 03/15/2017 [facility] HEMATOLOGY INR 0.83 0.85 - 1.17 03/15/2017 [facility] HEMATOLOGY PT 11.6 12.0 - 14.7 03/15/2017 [facility] HEMATOLOGY Segs 56.4 45.0 - 75.0 03/15/2017 [facility] HEMATOLOGY Monocytes 9.2 2.0 - 12.0 03/15/2017 [facility] HEMATOLOGY Eosinophils 1.2 0.0 - 4.0 03/15/2017 [facility] HEMATOLOGY Lymphocytes 32.4 20.0 - 40.0 03/15/2017 [facility] HEMATOLOGY Eosinophils # 0.1 0.0 - 0.5 03/15/2017 [facility] HEMATOLOGY Basophils # 0.1 0.0 - 0.2 03/15/2017 [facility] HEMATOLOGY Monocytes # 0.7 0.0 - 0.8 03/15/2017 [facility] HEMATOLOGY Segs-Bands # 4.1 1.5 - 8.1 03/15/2017 [facility] HEMATOLOGY Lymphocytes # 2.4 1.0 - 5.5 03/15/2017 [facility] HEMATOLOGY Basophils 0.8 0.0 - 1.0 03/15/2017 [facility] URINE AND STOOL Occult Bld Stl Negative (9/30/17 10:47 PM) Negative 03/15/2017 [facility] Pathology Reports No Data Provided for This Section Diagnostic Reports Report Value Date Source Abdomen RUQ US RIGHT UPPER QUADRANT ABDOMINAL ULTRASOUND DATED 03/14/2017 CLINICAL INDICATION: Acute right upper quadrant abdominal pain. COMPARISON: None TECHNIQUE: Sonographic evaluation of the right upper quadrant was performed with supplemental color and pulsed Doppler. FINDINGS: LIVER: The liver demonstrates heterogeneous increased parenchymal echotexture with diminished sound transmission, likely due to fatty infiltration. GALLBLADDER: The gallbladder is normally distended without evidence of gallstones. There is no evidence of gallbladder wall thickening or pericholecystic fluid to indicate acute inflammation. BILE DUCTS: The common bile duct is normal in caliber measuring 3 mm. PANCREAS: The pancreatic body appears normal in caliber. Increased echotexture of the pancreatic parenchyma is likely due to parenchymal atrophy with fatty replacement. The pancreatic head and tail are not well visualized. RIGHT KIDNEY: The right kidney measures 10.4 cm in length. The right kidney is normal in size and contour and maintains normal cortical echotexture. There is no evidence of hydronephrosis, nephrolithiasis, mass lesion or perinephric fluid collection. Additional comments: No free intraperitoneal fluid is identified in the right upper quadrant. Flow is demonstrated in the inferior vena cava. The abdominal aorta is not well visualized. IMPRESSION: 1. No sonographic evidence of cholelithiasis or acute cholecystitis. SL:131 03/14/2017 [facility] Brain wo contrast CT Clinical Indication: - Dizziness yesterday with nausea and vomiting Comparison: None. TECHNIQUE: CT images were obtained from the foramen magnum to the vertex without the use of intravenous contrast on a multidetector CT. CT imaging was performed with exposure control parameters to reduce radiation dose. Coronal and sagittal reconstructions were obtained. CT radiation dose DLP: 981.84 mGy-cm FINDINGS: BRAIN PARENCHYMA: There is generalized brain parenchymal atrophy related to the patient's age. The periventricular white matter is unremarkable.. No focal mass lesions on this noncontrast head CT. No mass effect, midline shift or edema. There are no intra-axial or extra-axial fluid collections, intraventricular or intraparenchymal hemorrhage. No low attenuation demarcating areas on this non- contrast CT to suggest subacute stroke. VENTRICLES: The lateral ventricles, third and fourth ventricles appear unremarkable. The basilar cisterns are normal. ORBITS, MASTOIDS AND PARANASAL SINUSES: The visualized orbits are unremarkable. The visualized paranasal sinuses are unremarkable. The mastoid air cells are clear. SKULL: There are no osseous abnormalities. If there is further concern for intracranial pathology or acute stroke, MRI of the brain may be performed for complete assessment. IMPRESSION: No acute infarct, intracranial hemorrhage or mass effect. SL: [id number] 03/14/2017 [facility] Chest 1view DX 1 VIEW CXR. PORTABLE EXAM 8:27 PM HISTORY: Nausea and vomiting. Dizziness. COMPARISON: None. The heart, lungs and mediastinum are normal for portable technique. IMPRESSION: Normal exam. END OF IMPRESSION SL: GRISEL-M 03/14/2017 [facility] Consultation Notes No Data Provided for This Section Discharge Summaries No Data Provided for This Section History and Physicals No Data Provided for This Section Vital Signs Vital Sign Value Date Comments Source Temperature Oral (F) 98.1 F 03/16/2017 [facility] Systolic (mm Hg) 111 03/16/2017 [facility] Diastolic (mm Hg) 78 03/16/2017 [facility] Heart Rate 68 03/16/2017 [facility] Respitory Rate 15 03/16/2017 [facility] Temperature Oral (F) 97.9 F 03/16/2017 [facility] Respitory Rate 20 03/16/2017 [facility] Heart Rate 75 03/16/2017 [facility] Systolic (mm Hg) 132 03/16/2017 [facility] Diastolic (mm Hg) 71 03/16/2017 [facility] Respitory Rate 16 03/16/2017 [facility] Systolic (mm Hg) 116 03/16/2017 [facility] Diastolic (mm Hg) 72 03/16/2017 [facility] Heart Rate 66 03/16/2017 [facility] Temperature Oral (F) 98.3 F 03/16/2017 [facility] Height 160.02 cm 03/15/2017 [facility] Weight 71.091 03/15/2017 [facility] BMI Calculated 27.76 03/15/2017 [facility] Weight 70.455 03/15/2017 [facility] Height 160.02 cm 03/15/2017 [facility] BMI Calculated 27.51 03/15/2017 [facility] Encounters Location Location Details Encounter Type Encounter Number Reason For Visit Attending Provider ADM Date DC Date Status Source [facility] Inpatient [id number] 03/15/2017 03/16/2017 [facility] Procedures Procedure Code Date Perfomer Comments Source Bilateral tubal ligation [id number] [facility] Cataract surgery [id number] [facility] Myringotomy [id number] [facility] Assessment and Plan Assessment and Plan Date Source Extracted from:Title: GI Author: Jeni Casas NP Date: 03/16/17 Progress Note - Daily [facility] Completed: Thursday, MAR 16, 2017, 12:41 by Jeni Casas MECHANICAL ENGINEERING MANAGER RM: 152 - 2W, SE C1A JV RICE 61y (: 1955) F Attending: Annabel Evangelista MD Service: Internal Medicine Reason for Admission: NAUSEA VOMITING, COFFEE GROUND EMESIS Working DRG: None Documented Code status: Full Code [Ordered] Current diet: Isolation: None Documented Allergies: NKDA SUBJECTIVE pt feeling ok today, denies n/v, abdominal pain. reports lack of appetite, but tolerating full liquids ok. 24hr Labs 03/16 1116 POC Performing Locatio See Note Glucose POC 176 H 03/16 0641 POC Performing Locatio See Note Glucose POC 150 H 03/15 2137 POC Performing Locatio See Note Glucose POC 232 H 03/15 1558 POC Performing Locatio See Note Glucose POC 147 H 03/15 1416 POC Performing Locatio See Note Glucose POC 149 H Nunez still necessary (Yes/No): Line still necessary (Yes/No): Vitals Tmp(F) Pulse BP RR SpO2 FIO2 03/16 12:08 98.1 68 111/78 15 98 --- 03/16 02:58 98.3 66 116/72 16 96 --- 03/16 00:00 98.5 69 116/59 16 95 --- 03/15 19:55 97.7 74 131/83 18 98 --- 03/15 16:00 97.8 75 122/74 16 97 --- 24 Hr Tmax: 98.5F (36.94c) at 03/16 00:00 Vital Signs are the last 5 in the past 48 hours. Date Wt(kg) Wt(lb) Ht(cm) Ht(in) Method 03/15 71.09 156.40 160.02 63.00 Measured 03/14 (initial) 70.45 155.00 Estimated 03/14 160.02 63.00 Stated I&O Record In Out Bal 03/16 24hr Tot 0 0 0 03/15 24hr Tot 1302 0 1302 Medications (20) Active Scheduled Meds (4): 03/15/17 Insulin regular (NovoLIN R) 5 unit SUB-Q TID-Before Meals 03/16/17 losartan 100 mg PO Daily 03/16/17 pantoprazole (Protonix) 40 mg PO Daily 03/16/17 venlafaxine 75 mg PO Daily Unscheduled Meds: None PRN Meds (13): 03/15/17 Dextrose 50% in Water IV (Dextrose 50% Syringe) 12.5 gm IVP PRN 03/15/17 Dextrose 50% in Water IV (Dextrose 50% Syringe) 25 gm IVP PRN 03/15/17 acetaminophen-hydrocodone (acetaminophen-hydrocodone 325 mg-5 mg oral tablet) 1 tab PO Q4H 03/15/17 acetaminophen 650 mg PO Q4H 03/15/17 glucagon 1 mg IM PRN 03/15/17 insulin lispro 1 unit SUB-Q Sliding Scale 03/15/17 insulin lispro 2 unit SUB-Q Sliding Scale 03/15/17 insulin lispro 3 unit SUB-Q Sliding Scale 03/15/17 insulin lispro 4 unit SUB-Q Sliding Scale 03/15/17 insulin lispro 5 unit SUB-Q Sliding Scale 03/15/17 morphine Sulfate 2 mg IVP Q4H 03/15/17 ondansetron (Zofran) 4 mg IVP Q8H 03/14/17 sodium chloride (Saline Flush 0.9%) 10 mL IVP PRN One Time Meds (2): 03/15/17 (Completed) acetaminophen 650 mg PO ONCE 03/15/17 (Discontinued) albuterol-ipratropium (albuterol-ipratropium 2.5-0.5 mg inhalation solution) 3 mL NEB ONCE Continuous Infusions (1): 03/15/17 sodium chloride 0.9% 1000 ml INJ 1,000 mL 1,000 mL 75 ml/hr General: No acute distress. HENT: Normocephalic, Neck: Supple, Non-tender. Respiratory: Lungs are clear to auscultation, Respirations are non-labored, Breath sounds are equal, Cardiovascular: Normal rate, Regular rhythm, No murmur, Gastrointestinal: Soft, Non-tender, Non-distended. no rebound or guarding + bs Integumentary: Warm, Dry, [place]. Neurologic: Alert, Oriented x 3 Psychiatric: Cooperative, Appropriate mood and affect. IMPRESSION 1. Abdominal Pain, epigastric- improved 2. Hematemesis- resolved 3. Nausea and Vomiting- resolved 4. S/P EGD- A 2cm sliding hiatal hernia was seen, Moderate patchy gastric erythema with thickened gastric folds; H pylori gastritis is a strong consideration. Biopsies to evaluate for H.pylori gastritis, Eosinophilic gastroenteritis and chemical gastropathy obtained. Normal visualized duodenal mucosa. Biopsies to evaluate for Celiac disease and Esoinophilic Gastroenteritis obtained. RECOMMENDATIONS 1. Follow pathology results 2. PPI 40mg PO Daily 3. Sucralfate 1g PO QID for 1 week 4. Advance diet as tolerated 5. Avoid NSAIDs 6. Ok to d/c home 7. Follow-up with Dr.Sumanth Mares in [facility] in 2 weeks d/w patient and daughter GI ATTENDING I have examined the patient with the MECHANICAL ENGINEERING MANAGER and confirmed the essential components of history, physical examination, diagnosis and treatment plan. I agree with the patient's care as documented by the MECHANICAL ENGINEERING MANAGER, and amended as needed herein by me. Kip Mares MD GI Attending Extracted from:Title: GI Consultation Note-[facility] Author: Kip Mares MD Date: 03/15/17 Impression and Plan Abdominal Pain, Epigastric Hematemesis Nausea and Vomiting Probable Melena GI Bleed Possible etiologies for her nausea, vomiting and abdominal pain include H pylori gastritis, NSAID induced ulcer, erosive gastritis, erosive esophagitis, gastric outlet obstruction and less likely an upper GI tract neoplasm Her hematemesis followed episodes of emesis and may be from a devonte fung tear and/or erosive esophagitis PPI therapy as ordered NPO Monitor H/H EGD for further evaluation We discussed risks and benefits of endoscopy procedures including risks from anesthesia as well as the risk of bleeding, infection and bowel perforation with endoscopic procedures and associated interventions. Alternatives of blood transfusion alone with observation and medical therapy were also offered. Patient elects to undergo endoscopy procedures as recommended. I would like to thank Kennedi and Gilbert for the opportunity to participate in the care of this patient 03/16/2017 [facility] Plan of Care No Data Provided for This Section Social History Social History Date Source Social History TypeResponse Substance Abuse Use: None. Alcohol Never Smoking Status Never smoker; Type: Cigarettes; Concerns about tobacco use in household: No; Exposure to Tobacco Smoke None; Cigarette Smoking Last 365 Days No; Reg Smoking Cessation Counseling No 03/15/2017 [facility] Family History No Data Provided for This Section Advance Directives No Data Provided for This Section Functional Status No Data Provided for This Section
--- OUTSIDE RECORDS SUMMARY | 2019-01-10 09:49 | XMS REPORT | Summary of Care ---
Author Author [facility] Organization [facility] Address Unknown Phone Unavailable Encounter FRANCISCO Martin(SHAMEKA) [id number] Date(s): 03/14/17 - 03/16/17 [facility] [address] [place] [address]- Discharge Disposition: Home or Self Care Vital Signs 1 2 3 Most recent to oldest [Reference Range]: 160.02 cm (03/15/17 1:32 AM) 160.02 cm (03/14/17 7:44 PM) Height 71.955 kg (03/15/17 4:02 AM) Current Weight 98.1 DegF (03/16/17 12:08 PM) 97.9 DegF (03/16/17 8:00 AM) 98.3 DegF (03/16/17 2:58 AM) Temperature Oral [96.4-99.1 DegF] 111/78 mmHg (03/16/17 12:08 PM) 132/71 mmHg (03/16/17 8:00 AM) 116/72 mmHg (03/16/17 2:58 AM) Blood Pressure [90-140/60-90 mmHg] 15 BRMIN (03/16/17 12:08 PM) 20 BRMIN (03/16/17 8:00 AM) 16 BRMIN (03/16/17 2:58 AM) Respiratory Rate [14-20 BRMIN] 68 bpm (03/16/17 12:08 PM) 75 bpm (03/16/17 8:00 AM) 66 bpm (03/16/17 2:58 AM) Peripheral Pulse Rate [60-100 bpm] 71.091 kg (03/15/17 1:32 AM) 70.455 kg (03/14/17 7:44 PM) Weight 27.76 m2 (03/15/17 1:32 AM) 27.51 m2 (03/14/17 7:44 PM) Body Mass Index Problem List Condition Effective Dates Status Health Status Informant Diabetes(Confirmed) Resolved Hypertension(Confirm Resolved ed) Parkinsons(Confirmed Resolved ) Allergies, Adverse Reactions, Alerts Substance Reaction Severity Status NKDA Active Medications acetaminophen 650 mg, Route: PO, Drug form: TAB, ONCE, Dosing Weight 70.455, kg, Priority: STA T, Start date: 03/15/17 1:12:00 CDT, Stop date: 03/15/17 1:12:00 CDT Start Date: 03/15/17 Stop Date: 03/15/17 Status: Completed acetaminophen 650 mg, 2 tab, Route: PO, Drug form: TAB, Q4H, Dosing Weight 70.455, kg, PRN Refugio n 1-3/Temp > 100.4 F, Start date: 03/15/17 1:18:00 CDT, Duration: 30 day, Stop date: 04/14/17 1:17:00 CDT Notes: Do not exceed 4 gm/day. (Same as: Tylenol) Start Date: 03/15/17 Stop Date: 03/16/17 Status: Discontinued acetaminophen-hydrocodone 325 mg-5 mg oral tablet 1 tab, Route: PO, Drug Form: TAB, Dosing Weight 70.455, kg, Q4H, PRN Pain Score 4-6, Start date: 03/15/17 1:18:00 CDT, Duration: 30 day, Stop date: 04/14/17 1:1 7:00 CDT Notes: (Same as: [place] 325/5) Do not exceed 4gm/day of acetaminophen. Start Date: 03/15/17 Stop Date: 03/16/17 Status: Discontinued albuterol-ipratropium 2.5-0.5 mg inhalation solution 3 mL, Route: NEB, Drug Form: SOLN, Dosing Weight 71.091, kg, ONCE, STAT, Start d ate: 03/15/17 11:50:00 CDT, Stop date: 03/15/17 11:50:00 CDT Notes: (Same as: Duoneb) Start Date: 03/15/17 Stop Date: 03/15/17 Status: Discontinued amantadine 100 mg oral capsule 200 mg=2 cap, PO, BID, 0 Refill(s) Start Date: 03/15/17 Status: Ordered aspirin 81 mg, PO, Daily, 0 Refill(s) Start Date: 03/15/17 Status: Ordered Dextrose 50% Syringe 25 gm, 50 mL, Route: IVP, Drug Form: INJ, Dosing Weight 71.091, kg, PRN, PRN Blo od Glucose Results, Start date: 03/15/17 11:17:00 CDT, Duration: 30 day, Stop da te: 04/14/17 11:16:00 CDT Start Date: 03/15/17 Stop Date: 03/16/17 Status: Discontinued Dextrose 50% Syringe 12.5 gm, 25 mL, Route: IVP, Drug Form: INJ, Dosing Weight 71.091, kg, PRN, PRN B lood Glucose Results, Start date: 03/15/17 11:17:00 CDT, Duration: 30 day, Stop date: 04/14/17 11:16:00 CDT Start Date: 03/15/17 Stop Date: 03/16/17 Status: Discontinued furosemide 20 mg oral tablet 20 mg=1 tab, PO, Daily, # 30 tab, 0 Refill(s) Start Date: 03/15/17 Status: Ordered glucagon 1 mg, Route: IM, Drug form: PDR/INJ, PRN, Dosing Weight 71.091, kg, PRN Blood Gl ucose Results, Start date: 03/15/17 11:17:00 CDT, Duration: 30 day, Stop date: 11:16:00 CDT Start Date: 03/15/17 Stop Date: 03/16/17 Status: Discontinued hydrochlorothiazide-losartan 12.5 mg-100 mg oral tablet 1 tab, PO, Daily, # 30 tab, 0 Refill(s) Start Date: 03/15/17 Stop Date: 03/16/17 Status: Discontinued ibuprofen 800 mg, PO, TID, PRN Pain Score 1-5, 0 Refill(s) Start Date: 03/15/17 Stop Date: 03/16/17 Status: Discontinued insulin lispro 3 unit, 0.03 mL, Route: SUB-Q, Drug form: SOLN, Sliding Scale, Dosing Weight 71. 091, kg, PRN Blood Glucose Results, Start date: 03/15/17 11:17:00 CDT, Duration: 30 day, Stop date: 04/14/17 11:16:00 CDT Notes: Roll in palms of hands gently; Do not shake `vigorously. (Same as: Javad og )"Single Patient Use Only "WASTE: F/P - Black; E - Municipal Trash Bin Stabl e for 28 days at room temperature.Expires in days from Date Start Date: 03/15/17 Stop Date: 03/16/17 Status: Discontinued insulin lispro 2 unit, 0.02 mL, Route: SUB-Q, Drug form: SOLN, Sliding Scale, Dosing Weight 71. 091, kg, PRN Blood Glucose Results, Start date: 03/15/17 11:17:00 CDT, Duration: 30 day, Stop date: 04/14/17 11:16:00 CDT Notes: Roll in palms of hands gently; Do not shake `vigorously. (Same as: Humheber og )"Single Patient Use Only "WASTE: F/P - Black; E - Municipal Trash Bin Stabl e for 28 days at room temperature.Expires in days from Date Start Date: 03/15/17 Stop Date: 03/16/17 Status: Discontinued insulin lispro 4 unit, 0.04 mL, Route: SUB-Q, Drug form: SOLN, Sliding Scale, Dosing Weight 71. 091, kg, PRN Blood Glucose Results, Start date: 03/15/17 11:17:00 CDT, Duration: 30 day, Stop date: 04/14/17 11:16:00 CDT Notes: Roll in palms of hands gently; Do not shake `vigorously. (Same as: Humal og )"Single Patient Use Only "WASTE: F/P - Black; E - Municipal Trash Bin Stabl e for 28 days at room temperature.Expires in days from Date Start Date: 03/15/17 Stop Date: 03/16/17 Status: Discontinued insulin lispro 1 unit, 0.01 mL, Route: SUB-Q, Drug form: SOLN, Sliding Scale, Dosing Weight 71. 091, kg, PRN Blood Glucose Results, Start date: 03/15/17 11:17:00 CDT, Duration: 30 day, Stop date: 04/14/17 11:16:00 CDT Notes: Roll in palms of hands gently; Do not shake `vigorously. (Same as: Javad lamb )"Single Patient Use Only "WASTE: F/P - Black; E - Municipal Trash Bin Stabl e for 28 days at room temperature.Expires in days from Date Start Date: 03/15/17 Stop Date: 03/16/17 Status: Discontinued insulin lispro 5 unit, 0.05 mL, Route: SUB-Q, Drug form: SOLN, Sliding Scale, Dosing Weight 71. 091, kg, PRN Blood Glucose Results, Start date: 03/15/17 11:17:00 CDT, Duration: 30 day, Stop date: 04/14/17 11:16:00 CDT Notes: Roll in palms of hands gently; Do not shake `vigorously. (Same as: Javad lamb )"Single Patient Use Only "WASTE: F/P - Black; E - Municipal Trash Bin Stabl e for 28 days at room temperature.Expires in days from Date Start Date: 03/15/17 Stop Date: 03/16/17 Status: Discontinued losartan 100 mg, 2 tab, Route: PO, Drug form: TAB, Daily, Dosing Weight 71.091, kg, Start date: 03/16/17 9:00:00 CDT, Duration: 30 day, Stop date: 04/14/17 9:00:00 CDT Notes: (Same as: Dane) Start Date: 03/16/17 Stop Date: 03/16/17 Status: Discontinued losartan 100 mg oral tablet 100 mg=1 tab, PO, Daily, # 30 tab, 0 Refill(s) Start Date: 03/15/17 Status: Ordered morphine Sulfate 2 mg, 1 mL, Route: IVP, Drug form: SOLN, Q4H, Dosing Weight 70.455, kg, PRN Pain Score 7-10, Start date: 03/15/17 1:18:00 CDT, Duration: 30 day, Stop date: 03/17 07/01 1:17:00 CDT Start Date: 03/15/17 Stop Date: 03/16/17 Status: Discontinued NovoLIN R 5 unit, SUB-Q, TID-Before Meals, 0 Refill(s) Start Date: 03/15/17 Status: Ordered NovoLIN R 5 unit, 0.05 mL, Route: SUB-Q, Drug form: INJ, TID-Before Meals, Dosing Weight 7 1.091, kg, Start date: 03/15/17 11:30:00 CDT, Duration: 30 day, Stop date: 04/14 7:30:00 CDT Notes: (Same as: Humulin R and NovoLIN R)WASTE: F/P - Black; E - Municipal Trash Bin (Do not shake) Start Date: 03/15/17 Stop Date: 03/16/17 Status: Discontinued omeprazole 20 mg oral delayed release capsule 20 mg=1 cap, PO, Daily, # 30 cap, 1 Refill(s) Start Date: 03/16/17 Status: Ordered ondansetron 4 mg, Route: IVP, Drug form: INJ, ONCE, Dosing Weight 70.455, kg, Priority: STAT , Start date: 03/14/17 21:26:00 CDT, Stop date: 03/14/17 21:26:00 CDT Start Date: 03/14/17 Stop Date: 03/14/17 Status: Discontinued pantoprazole 40 mg, Route: IVP, Drug form: INJ, ONCE, Dosing Weight 70.455, kg, Priority: STA T, Start date: 03/14/17 21:30:00 CDT, Stop date: 03/14/17 21:30:00 CDT Notes: For IV push reconstitute with 10 ml 0.9% sodium chloride and push over 2 minutes. (Same as: Protonix) Start Date: 03/14/17 Stop Date: 03/14/17 Status: Completed pantoprazole 80 mg + sodium chloride 0.9% INJ 100 mL 100 mL, Rate: 10 ml/hr, Infuse over: 10 hr, Route: IVPB, Dosing Weight 70.455 kg , Total Volume: 100, Infuse at 8 mg / hr for 72 hours for GI bleeding, Start slyvia e: 03/15/17 1:20:00 CDT, Duration: 72 hr, Stop date: 03/18/17 1:19:00 CDT Start Date: 03/15/17 Stop Date: 03/15/17 Status: Discontinued pneumococcal 23-valent vaccine 0.5 mL, Route: IM, Drug Form: INJ, Daily, Start date: 03/15/17 9:00:00 CDT, Dura tion: 1 doses or times, Stop date: 03/15/17 9:00:00 CDT Notes: (Same as: Pneumovax 23) Refrigerate Start Date: 03/15/17 Stop Date: 03/15/17 Status: Completed Protonix 40 mg, 1 tab, Route: PO, Drug form: ECTAB, Daily, Dosing Weight 71.091, kg, Star t date: 03/16/17 9:00:00 CDT, Duration: 30 day, Stop date: 04/14/17 9:00:00 CDT Notes: Tablet should not be chewed or crushed.(Same as: Protonix) Start Date: 03/16/17 Stop Date: 03/16/17 Status: Discontinued Saline Flush 0.9% 10 mL, Route: IVP, Drug Form: INJ, kg, PRN, PRN Line Flush, Start date: 03/14/17 19:46:00 CDT, Duration: 30 day, Stop date: 04/13/17 19:45:00 CDT Notes: (Same as: BD Posiflush) Start Date: 03/14/17 Stop Date: 03/16/17 Status: Discontinued Sodium Chloride 0.9% (Bolus) IV 1,000 mL, 1000 ml/hr, Infuse Over: 1 hr, Route: IV, 1,000, Drug form: INJ, ONCE, Priority: STAT, Dosing Weight 70.455 kg, Start date: 03/14/17 21:26:00 CDT, Dur ation: 1 doses or times, Stop date: 03/14/17 21:26:00 CDT Start Date: 03/14/17 Stop Date: 03/14/17 Status: Completed sodium chloride 0.9% 1000 ml INJ 1,000 mL 1,000 mL, Rate: 75 ml/hr, Infuse over: 13.3 hr, Route: IV, Dosing Weight 71.091 kg, Total Volume: 1,000, Start date: 03/15/17 14:38:00 CDT, Duration: 30 day, St op date: 04/14/17 14:37:00 CDT Start Date: 03/15/17 Stop Date: 03/16/17 Status: Discontinued sodium chloride 0.9% 500 ml INJ 500 mL 500 mL, Rate: 25 ml/hr, Infuse over: 20 hr, Route: IV, Dosing Weight 71.091 kg, Total Volume: 500, Start date: 03/15/17 11:50:00 CDT, Duration: 30 day, Stop sylvia e: 04/14/17 11:49:00 CDT Start Date: 03/15/17 Stop Date: 03/15/17 Status: Discontinued sucralfate 1 g oral tablet 1 gm=1 tab, PO, QID, # 56 tab, 0 Refill(s) Start Date: 03/16/17 Stop Date: 03/30/17 Status: Ordered Tresiba FlexTouch 60 unit, SUB-Q, Daily, 0 Refill(s) Start Date: 03/15/17 Status: Ordered venlafaxine 75 mg, 2 tab, Route: PO, Drug form: TAB, Daily, Dosing Weight 71.091, kg, Start date: 03/16/17 9:00:00 CDT, Duration: 30 day, Stop date: 04/14/17 9:00:00 CDT Notes: (Same As: Effexor) Start Date: 03/16/17 Stop Date: 03/16/17 Status: Discontinued venlafaxine 75 mg oral tablet 75 mg=1 tab, PO, Daily, 0 Refill(s) Start Date: 03/15/17 Status: Ordered Zofran 4 mg, Route: IVP, Drug form: INJ, Q8H, Dosing Weight 71.091, kg, PRN Nausea, Sta rt date: 03/15/17 14:37:00 CDT, Duration: 30 day, Stop date: 04/14/17 14:36:00 C DT Start Date: 03/15/17 Stop Date: 03/15/17 Status: Discontinued Zofran 4 mg, 2 mL, Route: IVP, Drug form: INJ, Q8H, Dosing Weight 71.091, kg, PRN Nause a, Start date: 03/15/17 12:40:00 CDT, Duration: 30 day, Stop date: 04/14/17 12:3 9:00 CDT Notes: (Same as: Zofran) MEDICATION WASTE Product Size: 4 mgProduct Was abdiel: ___ mg Start Date: 03/15/17 Stop Date: 03/16/17 Status: Discontinued Zofran 4 mg, 2 mL, Route: IVP, Drug form: INJ, ONCE, Dosing Weight 70.455, kg, Priority : STAT, Start date: 03/14/17 21:30:00 CDT, Stop date: 03/14/17 21:30:00 CDT Notes: (Same as: Zofran) MEDICATION WASTE Product Size: 4 mgProduct Was abdiel: ___ mg Start Date: 03/14/17 Stop Date: 03/14/17 Status: Completed Zofran ODT 4 mg oral tablet, disintegrating 4 mg=1 tab, PO, BID, PRN Nausea and Vomiting, Dissolve tab under tongue, # 10 ta b, 0 Refill(s) Start Date: 03/16/17 Stop Date: 03/21/17 Status: Ordered Results ELECTROLYTES Most recent to 1 2 oldest [Reference Range]: Sodium Lvl [135-145 142 mEq/L 138 mEq/L mEq/L] (03/15/17 5:35 AM) (03/14/17 10:47 PM) Potassium Lvl 3.7 mEq/L 4.0 mEq/L [3.5-5.1 mEq/L] (03/15/17 5:35 AM) (03/14/17 10:47 PM) Chloride Lvl [95-109 108 mEq/L 102 mEq/L mEq/L] (03/15/17 5:35 AM) (03/14/17 10:47 PM) CO2 [24-32 mEq/L] 23 mEq/L 26 mEq/L *LOW* (03/14/17 10:47 PM) (03/15/17 5:35 AM) AGAP [10.0-20.0 14.7 mEq/L 14.0 mEq/L mEq/L] (03/15/17 5:35 AM) (03/14/17 10:47 PM) CHEM PANEL Most recent to 1 2 oldest [Reference Range]: Creatinine Lvl 0.66 mg/dL 0.78 mg/dL [0.50-1.40 mg/dL] (03/15/17 5:35 AM) (03/14/17 10:47 PM) eGFR 96 mL/min/1.73m2 1 83 mL/min/1.73m2 2 *NA* *NA* (03/15/17 5:35 AM) (03/14/17 10:47 PM) BUN [7-22 mg/dL] 13 mg/dL 14 mg/dL (03/15/17 5:35 AM) (03/14/17 10:47 PM) Glucose Lvl [70-99 118 mg/dL 175 mg/dL mg/dL] *HI* *HI* (03/15/17 5:35 AM) (03/14/17 10:47 PM) Total Protein 7.8 g/dL [6.4-8.4 g/dL] (03/14/17 10:47 PM) Albumin Lvl [3.5-5.0 3.3 g/dL g/dL] *LOW* (03/14/17 10:47 PM) Globulin [2.7-4.2 4.5 g/dL g/dL] *HI* (03/14/17 10:47 PM) A/G Ratio [0.7-1.6] 0.7 (03/14/17 10:47 PM) Calcium Lvl 8.6 mg/dL 9.4 mg/dL [8.5-10.5 mg/dL] (03/15/17 5:35 AM) (03/14/17 10:47 PM) ALT [0-65 unit/L] 28 unit/L (03/14/17 10:47 PM) AST [0-37 unit/L] 23 unit/L (03/14/17 10:47 PM) Alk Phos [39-136 125 unit/L unit/L] (03/14/17 10:47 PM) Bili Total [0.2-1.3 0.4 mg/dL mg/dL] (03/14/17 10:47 PM) Bili Direct [0.0-0.3 0.1 mg/dL mg/dL] (03/14/17 10:47 PM) Bili Indirect 0.3 mg/dL [0.0-1.0 mg/dL] (03/14/17 10:47 PM) Lipase Lvl [73-393 81 unit/L unit/L] (03/14/17 10:47 PM) 1Result Comment: The eGFR is calculated using the [...] from the National Kidney Disease Education Program ( NKDEP) which additionally recommends that when the eGFR is used in patients with extremes of body mass index for purposes of drug dosing, the eGFR should be mul tiplied by the estimated BMI. 2Result Comment: The eGFR is calculated using the [...] from the National Kidney Disease Education Program ( NKDEP) which additionally recommends that when the eGFR is used in patients with extremes of body mass index for purposes of drug dosing, the eGFR should be mul tiplied by the estimated BMI. CARDIAC ENZYMES Most recent to 1 2 oldest [Reference Range]: Troponin-I <0.02 ng/mL [0.00-0.40 ng/mL] (03/14/17 10:47 PM) URINE AND STOOL Most recent to 1 2 oldest [Reference Range]: UA Turbidity [Clear] Clear (03/15/17 12:46 AM) UA Color Ltyellow *NA* (03/15/17 12:46 AM) UA pH [5.0-8.0] 6.0 (03/15/17 12:46 AM) UA Spec Grav 1.006 [<=1.030] (03/15/17 12:46 AM) UA Glucose [Negative 50 mg/dL mg/dL] *ABN* (03/15/17 12:46 AM) UA Blood [Negative] Negative (03/15/17 12:46 AM) UA Ketones [Negative Negative mg/dL mg/dL] *NA* (03/15/17 12:46 AM) UA Protein [Negative Negative mg/dL mg/dL] (03/15/17 12:46 AM) UA Urobilinogen <=1.0 mg/dL [0.1-1.0 mg/dL] *NA* (03/15/17 12:46 AM) UA Bili [Negative] Negative *NA* (03/15/17 12:46 AM) UA Leuk Est Negative [Negative] (03/15/17 12:46 AM) UA Nitrite Negative [Negative] (03/15/17 12:46 AM) UA WBC [0-5 /HPF] 2 /HPF (03/15/17 12:46 AM) UA RBC [0-2 /HPF] 1 /HPF (03/15/17 12:46 AM) UA Bacteria [None Many /HPF Seen /HPF] *ABN* (03/15/17 12:46 AM) UA Sq Epi [Few /LPF] Occasional /LPF *NA* (03/15/17 12:46 AM) Occult Bld Stl Negative [Negative] (03/14/17 10:47 PM) HEMATOLOGY Most recent to 1 2 oldest [Reference Range]: WBC [3.7-10.4 K/CMM] 7.4 K/CMM 7.3 K/CMM (03/15/17 5:35 AM) (03/14/17 10:47 PM) RBC [4.20-5.40 4.47 M/CMM 4.82 M/CMM M/CMM] (03/15/17 5:35 AM) (03/14/17 10:47 PM) Hgb [12.0-16.0 g/dL] 13.6 g/dL 14.7 g/dL (03/15/17 5:35 AM) (03/14/17 10:47 PM) Hct [36.0-48.0 %] 40.2 % 43.9 % (03/15/17 5:35 AM) (03/14/17 10:47 PM) MCV [80.0-98.0 fL] 89.8 fL 91.1 fL (03/15/17 5:35 AM) (03/14/17 10:47 PM) MCH [27.0-31.0 pg] 30.3 pg 30.5 pg (03/15/17 5:35 AM) (03/14/17 10:47 PM) MCHC [32.0-36.0 33.8 g/dL 33.5 g/dL g/dL] (03/15/17 5:35 AM) (03/14/17 10:47 PM) RDW [11.5-14.5 %] 13.8 % 14.0 % (03/15/17 5:35 AM) (03/14/17 10:47 PM) Platelet [133-450 266 K/CMM 283 K/CMM K/CMM] (03/15/17 5:35 AM) (03/14/17 10:47 PM) MPV [7.4-10.4 fL] 8.7 fL 8.6 fL (03/15/17 5:35 AM) (03/14/17 10:47 PM) Segs [45.0-75.0 %] 40.8 % 56.4 % *LOW* (03/14/17 10:47 PM) (03/15/17 5:35 AM) Lymphocytes 47.0 % 32.4 % [20.0-40.0 %] *HI* (03/14/17 10:47 PM) (03/15/17 5:35 AM) Monocytes [2.0-12.0 9.5 % 9.2 % %] (03/15/17 5:35 AM) (03/14/17 10:47 PM) Eosinophils [0.0-4.0 2.1 % 1.2 % %] (03/15/17 5:35 AM) (03/14/17 10:47 PM) Basophils [0.0-1.0 0.6 % 0.8 % %] (03/15/17 5:35 AM) (03/14/17 10:47 PM) Segs-Bands # 2.9 K/CMM 4.1 K/CMM [1.5-8.1 K/CMM] (03/15/17 5:35 AM) (03/14/17 10:47 PM) Lymphocytes # 3.4 K/CMM 2.4 K/CMM [1.0-5.5 K/CMM] (03/15/17 5:35 AM) (03/14/17 10:47 PM) Monocytes # [0.0-0.8 0.7 K/CMM 0.7 K/CMM K/CMM] (03/15/17 5:35 AM) (03/14/17 10:47 PM) Eosinophils # 0.2 K/CMM 0.1 K/CMM [0.0-0.5 K/CMM] (03/15/17 5:35 AM) (03/14/17 10:47 PM) Basophils # [0.0-0.2 0.1 K/CMM K/CMM] (03/14/17 10:47 PM) PT [12.0-14.7 11.6 seconds seconds] *LOW* (03/14/17 10:47 PM) INR [0.85-1.17] 0.83 *LOW* (03/14/17 10:47 PM) Immunizations Given and Recorded Vaccine Date Status Refusal Reason pneumococcal 23-valent vaccine 03/15/17 Given Procedures Procedure Date Related Diagnosis Body Site Bilateral tubal ligation Cataract surgery Myringotomy Social History Social History Type Response Substance Abuse Use: None. Alcohol Never Smoking Status Never smoker; Type: Cigarettes; Concerns about tobacco use in household: No; Exposure to Tobacco Smoke None; Cigarette Smoking Last 365 Days No; Reg Smoking Cessation Counseling No Assessment and Plan Extracted from: Title: GI Author: Jeni Casas NP Date: 03/16/17 Progress Note - Daily [facility] Completed: Thursday, MAR 16, 2017, 12:41 by Jeni Casas NP RM: [address], [address] WILLIAMSONy (: 1955) F Attending: Annabel Evangelistahone: Service: Internal Medicine Reason for Admission: NAUSEA VOMITING, COFFEE GROUND EMESIS Working DRG: None Documented Code status: Full Code [Ordered]Current diet: Isolation: None Documented Allergies: NKDA SUBJECTIVE pt feeling ok today, denies n/v, abdominal pain. reports lack of appetite, but tolerating full liquids ok. 24hr Labs 03/16 1116 POC Performing LocatioSee Note Glucose [id number] H 03/16 0641 POC Performing LocatioSee Note Glucose [id number] H 03/15 2137 POC Performing LocatioSee Note Glucose [id number] H 03/15 1558 POC Performing LocatioSee Note Glucose [id number] H 03/15 1416 POC Performing LocatioSee Note Glucose [id number] H Nunez still necessary (Yes/No): Line still necessary (Yes/No): VitalsTmp(F)[id number] 03/16 12:[id number]--- 03/16 02:5898.053883/150247--- 03/16 00:0098.586878/391113--- 03/15 19:[id number]/[id number]--- 03/15 16:0097.404604/[id number]--- 24 Hr Tmax: 98.5F (36.94c) at 03/16 00:00Vital Signs are the last 5 in the past 48 hours. DateWt(kg)Wt(lb)Ht(cm)Ht(in)Method 03/15 71.09 [id number] 63.00Measured 03/14 (initial) 70.45 155.00Estimated 56735.02 63.00Stated I&ORecordInOutBal 03/224hr Tot 0 0 0 03/124hr Tot 1302 0 1302 Medications (20) Active [...] or guarding + bs Integumentary: Warm, Dry, Labelle. Neurologic: Alert, Oriented x 3 Psychiatric: Cooperative, Appropriate mood & affect. IMPRESSION 1. Abdominal Pain, epigastric- improved [...] I have examined the patient with the MILLWRIGHT and confirmed the essential components of history, physical examination, diagnosis and treatment plan. I agree with the patient's care as documented by the MILLWRIGHT, and amended as needed herein by me. Kip Mares MD GI Attending Extracted from: Title: GI Consultation Note-Suzan Author: Kip Mares MD [...]
[2019-01-10 14:15] VITALS: BP 121/70
--- NOTE | 2019-01-10 20:16 | Operative Report ---
DATE OF PROCEDURE: 01/10/2019 SURGEON: Mick Bses MD PROCEDURES: Esophagogastroduodenoscopy with biopsies and colonoscopy with polypectomy. INDICATION FOR EGD: Heartburn, bloating, history of melena. INDICATION FOR COLONOSCOPY: Colorectal cancer screening. MEDICATIONS: The patient was done under MAC, please see anesthesiologist's note. PROCEDURE IN DETAIL: With the patient in left lateral decubitus position, a flexible fiberoptic Olympus gastroscope was introduced into the esophagus under direct visualization without any difficulty. There was some patchy erythema noted in the distal esophagus. The GE junction was ulcerated. It was biopsied. The scope was then advanced with ease into the stomach. Mucosa overlying the antrum and the body revealed some patchy erythema and moderate edema. Biopsies were obtained and sent to stain for H. pylori. Pylorus was of normal contour and shape, was intubated with ease and the scope was advanced all the way to the second portion of the duodenum. Biopsies were obtained from the second portion and duodenal bulb to rule out sprue. The scope was then withdrawn back into the stomach and retroflexed and mucosa overlying the fundus and cardia appeared to be within normal limits. The scope was then straightened out. The stomach was decompressed. The scope was subsequently withdrawn. The patient tolerated the procedure well. IMPRESSION: 1. Distal esophagitis. 2. Gastroesophageal junction ulcerated, biopsied. 3. Gastritis, biopsied. Biopsies sent to stain for Helicobacter pylori. 4. Rule out sprue. PLAN: Follow up histology. Initiate Protonix 40 mg one p.o. q.a.m. a.c. The patient was then turned around after adequate lubrication of the anal canal. Colonoscopy: Flexible fiberoptic Olympus colonoscope was inserted into the rectum with ease and advanced all the way to the cecum. The scope was then withdrawn slowly. Mucosa overlying the cecum, ascending colon, transverse colon, and descending colon grossly appeared to be within normal limits. The sigmoid colon was excessively spastic and irritable. One minute polyp was removed from the distal sigmoid and the rectum was also excessively spastic and irritable. Both the sigmoid and the rectum were suboptimally visualized. The scope was then retroflexed into the distal rectum. Small internal hemorrhoids were noted. None of which was actively bleeding. The scope was then straightened out. It was subsequently withdrawn. The patient tolerated the procedure well. IMPRESSION: Sigmoid colon polyp, removed per cold biopsy forceps. PLAN: Follow up histology. Initiate high-fiber, low-fat diet. Initiate high-fiber supplement. The patient might benefit from a followup colonoscopy in 5 years. MD EMMY Allen/JENNY /[id number] cc: Sinan Ryan
== END | disposition home or self-care (01) ==
LOC: OR 09:47
PROVIDERS: ATTEND Internal Medicine Gastroenterology
DX: K92.1 Melena (principal); Z12.11 Encounter for screening for malignant neoplasm of colon; K29.80 Duodenitis without bleeding; K21.0 Gastro-esophageal reflux disease with esophagitis; K29.50 Unspecified chronic gastritis without bleeding; B96.81 Helicobacter pylori [H. pylori] as the cause of diseases classified elsewhere; K63.5 Polyp of colon; K58.9 Irritable bowel syndrome, unspecified; K64.8 Other hemorrhoids; K59.00 Constipation, unspecified; I10 Essential (primary) hypertension; Z01.810 Encounter for preprocedural cardiovascular examination; Z71.3 Dietary counseling and surveillance; Z68.27 Body mass index [BMI] 27.0-27.9, adult; E11.9 Type 2 diabetes mellitus without complications; Z79.84 Long term (current) use of oral hypoglycemic drugs; G20 Parkinson's disease; F41.9 Anxiety disorder, unspecified
CPT/HCPCS: 36415; 43239; 45378; 45380; 45385; 82948; 88305; 88312; 93005; J2250; J3010